=== PATIENT | male | born 1955 | race Caucasian/White ===

== ENCOUNTER 2017-10-17 22:02 | Inpatient (IN) | payer OTHER ==
[~2017-10-17] VITALS: Ht 170.2 cm; Wt 75.9 kg
[~2017-10-17 22:02] MED LIST: ADVAIR 250-501 EACH INH; ADVAIR DISKUS 21 DSK INH; ALBUTEROL0.09 MG/A1 INH; ALUPENT 20MG TA20 MG PO; AMOXICILLIN250 MG PO; AUGMENTIN 875-1 EACH PO; AZITHROMYCIN250 MG PO; CALCIUM 600600 M1 PO; CALCIUM600 M3 PO; COZAAR25 M1 PO; DALIRESP500 MC1 PO; DALIRESP500 MCG PO; DELTASONE20 MG PO; DULOXETINE HCL30 MG PO; GLUCOPHAGE850 M2 PO; INVOKANA100 MG PO; JANUVIA 100MG100 MG PO; JANUVIA100 M1 PO; JARDIANCE10 M1 PO; LEVAQUIN500 MG PO; LEVOFLOXACIN750 MG PO; LOSARTAN POTASS25 MG PO; LOVASTATIN20 M1 PO; METFORMIN1000 MG PO; MEVACOR20 MG PO; PREDNISONE10 MG PO; PREDNISONE50 MG PO; PROVENTIL HFA6.7 GM INH; SPIRIVA 18 MCG18 MCG INH; SPIRIVA18 MCG INH; TAMIFLU 75MG75 MG PO; VITAMIN D1000 IU PO; VITAMIN D2000 UNIT PO; XANAX0.25 M1 PO; ZITHROMAX TRI-500 MG PO; ZITHROMAX250 M2 PO
--- NOTE | 2017-10-17 22:08 | ED DYSPNEA/ASTHMA COMPLAINT ---
History of Present Illness General Chief Complaint: Dyspnea (COPD, CHF, Other) Stated Complaint: BIBA DIFF BREATHING Source: patient, old records, EMS Exam Limitations: no limitations Vital Signs & Intake/Output Vital Signs & Intake/Output Vital Signs Date Time Temp Pulse Resp B/P B/P Pulse O2 O2 Flow FiO2 Mean Ox Delivery Rate 10/179 BIPAP 10/17 2257 97.9 92 20 136/72 96 CPAP 10/17 2207 127 27 143/65 84 CPAP Allergies Coded Allergies: No Known Allergies (06/17/15) Reconcile Medications Albuterol Sulfate (Proventil Hfa) 90 MCG HFA.AER.AD 2 PUF INH AD PRN EMPHYSEMA /COPD (Reported) Alprazolam (Xanax) 0.25 MG TABLET 1-2 TAB PO BIDP PRN anxiety Amoxicillin/Potassium Clav (Augmentin 875-125 Tablet) 875 MG-125 MG TABLET 1 TAB PO BID copd Azithromycin (Zithromax) 250 MG TABLET 1 TAB PO DAILY PROPHYLAXIS (Reported) Calcium (Elemental-Fr Calcarb) (Calcium) 600 MG CALCIUM (1,500 MG) TABLET 2 TAB PO DAILY SUPPLEMENT (Reported) Cholecalciferol (Vitamin D3) (Vitamin D) 2,000 UNIT CAPSULE 1 CAP PO DAILY SUPPLEMENT (Reported) Duloxetine HCl 30 MG CAPSULE.DR 1 CAP PO DAILY DEPRESSION (Reported) Empagliflozin (Jardiance) 10 MG TABLET 1 TAB PO DAILY DM (Reported) Fluticasone/Salmeterol (Advair 250-50 Diskus) 250 MCG-50 MCG/DOSE BLST.W.DEV 1 PUF INH BID EMPHYSEMA/COPD (Reported) Losartan Potassium (Cozaar) 25 MG TABLET 1 TAB PO DAILY BP (Reported) Lovastatin 20 MG TABLET 1 TAB PO DAILY CHOLESTEROL (Reported) Metformin HCl (Glucophage) 850 MG TABLET 1 TAB PO BID DM (Reported) Prednisone (Deltasone) 20 MG TABLET 1 TAB PO BID copd Roflumilast (Daliresp) 500 MCG TABLET 1 TAB PO DAILY COPD/EMPHYSEMA (Reported ) Sitagliptin Phosphate (Januvia) 100 MG TABLET 1 TAB PO DAILY DM (Reported) Tiotropium [place] (Spiriva) 18 MCG CAP.W.DEV 1 CAP INH DAILY COPD/EMPHYSEMA (Reported) Triage Note: PT TO ED BY AMBULANCE WITH C/O ONSET OF RESPIRATORY DISTRESS 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 HX COPD. PLACED ON CPAP IN FIELD. ARRIVES 84%, LABORED BREATHING. RECEIVED 125 MG SOLUMEDROL, 2 G MAGNESIUM SULFATE FROM EMS IV. Triage Nurses Notes Reviewed? yes Onset: Abrupt Duration: hour(s): Timing: recent history Severity: severe Activities at Onset: none Prior Episodes/Possible Cause: occasional episodes Modifying Factors: Improves With: rest. Associated Symptoms: cough, wheezing HPI: 62 yo gentleman h/o copd presents with 1 hour acute onset of shortness of breath and wheezing. Per the medics, his family checked his 02 sat which was in the 70's. They called 911. Medics arrived gave solumedrol 125mg, a duo neb, started bipap, and gave magnesium 2gm iv. Per the medics, "He is looking a lot better." Past History Travel History Traveled to [place] past 21 day No Medical History Any Pertinent Medical History? 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 No Review of Systems Review of Systems Constitutional: Denies: see HPI. EENTM: Reports: no symptoms. Respiratory: Reports: no symptoms. Cardiovascular: Reports: no symptoms. GI: Reports: no symptoms. Genitourinary: Reports: no symptoms. Musculoskeletal: Reports: no symptoms. Skin: Reports: no symptoms. Neurological/Psychological: Reports: no symptoms. Hematologic/Endocrine: Reports: no symptoms. Immunologic/Allergic: Reports: no symptoms. All Other Systems: Reviewed and Negative Physical Exam Physical Exam General Appearance: well developed/nourished, severe distress Head: normal appearance Eyes: Bilateral: normal appearance. Ears, Nose, Throat: normal pharynx, normal ENT inspection Neck: normal inspection, supple Respiratory: accessory muscle use, wheezing, respiratory distress, prolonged expiratory phase Cardiovascular: regular rate/rhythm Gastrointestinal: normal bowel sounds, soft, non-tender, no organomegaly Extremities: normal inspection Skin: intact, normal color, warm/dry Core Measures ACS in differential dx? No CVA/TIA Diagnosis No Sepsis Present: No Sepsis Focused Exam Completed? No Progress Differential Diagnosis: asthma, CHF, COPD, pneumonia Plan of Care: Orders Procedure Date/time Status Admit to inpatient 10/18 2319 Active Add-on Test (ER Only) 10/17 2317 Active URINE DRUG SCREEN FOR ER ONLY 10/17 2317 Active URINALYSIS 10/17 2317 Active BLOOD CULTURE 10/17 2304 Active BLOOD CULTURE 10/17 2300 Active ARTERIAL BLOOD GAS (GEN) 10/17 2208 Complete TROPONIN LEVEL 10/17 2208 Complete LIPASE 10/17 2208 Complete LACTIC ACID 10/17 2208 Complete HEPATIC FUNCTION PANEL 10/17 2208 Complete CBC WITHOUT DIFFERENTIAL 10/17 2208 Complete BASIC METABOLIC PANEL 10/17 2208 Complete AMYLASE 10/17 2208 Complete EKG 10/17 2208 Active BIPAP 10/17 UNK Complete Current Medications Sig/Deidra Start time Last Medication Dose Stop Time Status Admin Azithromycin 500 MG ONCE ONE 10/17 2314 UNVr (Zithromax) 10/18 0014 Sodium Chloride 250 ML (Normal Saline 0.9%) Ceftriaxone Sodium 1,000 MG ONCE ONE 10/17 2314 UNVr (Rocephin) 10/18 2315 Laboratory Tests 10/17/175: pH 7.23 *L, pCO2 88 *H, pO2 370 H, HCO3 36 H, ABG O2 Sat (Measured) 96.0, Carboxyhemoglobin 2.8, O2 Concentration % 100, Respiration Rate 20, O2 Delivery Method BIPAP, Vent Mode ST, Expiratory Pressure 6, Inspiratory Pressure 18, Phlebotomy Draw Site RIGHT RADIAL 10/17/172221: Anion Gap 11, Estimated GFR > 60, BUN/Creatinine Ratio 25.0, Glucose 166 H, Lactic Acid 1.1, Calcium 9.1, Total Bilirubin 0.4, Direct Bilirubin 0.3, AST 21, ALT 29, Alkaline Phosphatase 98, Troponin I < 0.01, Total Protein 7.4, Albumin 4.1, Amylase 73, Lipase 524 H, CBC w Diff NO MAN DIFF REQ, RBC 4.79, MCV 96.5 H, MCH 31.4 H, MCHC 32.6 L, RDW 13.0, MPV 7.6, Gran % 88.1 H, Lymphocytes % 6.6 L, Monocytes % 5.3, Eosinophils % 0, Basophils % 0, Absolute Granulocytes 8.0 H, Absolute Lymphocytes 0.6 L, Absolute Monocytes 0.5, Absolute Eosinophils 0, Absolute Basophils 0 Microbiology 10/17 2304 BLOOD: Blood Culture - ORD 10/17 2300 BLOOD: Blood Culture - ORD Diagnostic Imaging: Viewed by Me: Radiology Read. Discussed w/RAD: Radiology Read. CXR Impression: PATIENT: TRENT IBARRA PRESENT AGE: 62 PATIENT ACCOUNT NO: [id number] : 55 LOCATION: [facility] ORDERING PHYSICIAN: Moisés Sosa MD SERVICE DATE: 10/17/17 EXAM TYPE: RAD - XRY- PORTABLE CHEST XRAY EXAMINATION: XR PORTABLE CHEST CLINICAL INFORMATION: Chest pain COMPARISON: 10/14/2017 TECHNIQUE: Portable frontal view of the chest was obtained. FINDINGS: Lungs remain clear, mildly hyperinflated, heart mediastinum and dann unchanged, no failure. No pleural effusion or pneumothorax. IMPRESSION: No acute change. No evidence of acute infiltrates. DICTATED BY: Chico Peña MD DATE/TIME DICTATED:10/17/172245 FORMING ACID DUMPER:TEDDY DATE/TIME TRANSCRIBED:10/17/172245 CONFIDENTIAL, DO NOT COPY WITHOUT APPROPRIATE AUTHORIZATION. <Electronically signed in Other Vendor System> SIGNED BY: Chico Peña MD 10/17/17 2251 Initial ED EKG: sinus tach Departure Departure Disposition: STILL A PATIENT Condition: Stable Clinical Impression Primary Impression: Respiratory distress Secondary Impressions: COPD exacerbation, Hypercapnic respiratory failure Referrals: Amos Mosley MD (PCP/Family) Departure Forms: Customer Survey General Discharge Information Comments 10/17/17, 23:10... pt feeling better with improved aeration of his lungs, bright eyed. on bipap machine, pt generating volumes >400. Admission Note Spoke With: Amos Mosley MD Documentation of Exam: Documentation of any treatments & extenuating circumstances including Concerns Regarding Discharge (functional status, medication knowledge or non-compliance, living conditions, etc.) that warrant an admission rather than observation: Pt with hypercapnia/copd exacerbation, now improving on bipap, merits icu level care. Critical Care Note Critical Care Note Critical Care Time: 30-74 min
[2017-10-17 22:30] LABS: ABSOLUTE BASOPHIL COUNT 0 /CUMM (0.0-0.2); ABSOLUTE EOSINOPHIL COUNT 0 /CUMM (0.0-0.7); ABSOLUTE LYMPH COUNT 0.6 /CUMM (1.2-3.4); ABSOLUTE MONOCYTE COUNT 0.5 /CUMM (0.10-0.60); BASOPHIL % 0 % (0.0-2.0); EOSINOPHIL % 0 % (0-5); MEAN CORPUSCULAR HGB 31.4 PG (27.0-31.0); MEAN CORPUSCULAR HGB CONC 32.6 G/DL (33.0-37.0); MEAN CORPUSCULAR VOLUME 96.5 FL (80.0-94.0); MEAN PLATELET VOLUME 7.6 FL (7.4-10.4); PLATELET COUNT 285 /CUMM (130-400); RED BLOOD CELL CT 4.79 /CUMM (4.70-6.10); WHITE BLOOD CELL COUNT 9.1 /CUMM (4.8-10.8)
[2017-10-17 22:41] LABS: GRANULOCYTE % 88.1 % (42.2-75.2); HEMATOCRIT 46.2 % (42-52)
--- NOTE | 2017-10-17 22:51 | RADIOLOGY REPORT ---
EXAMINATION: XR PORTABLE CHEST CLINICAL INFORMATION: Chest pain COMPARISON: 10/14/2017 TECHNIQUE: Portable frontal view of the chest was obtained. FINDINGS: Lungs remain clear, mildly hyperinflated, heart mediastinum and dann unchanged, no failure. No pleural effusion or pneumothorax. IMPRESSION: No acute change. No evidence of acute infiltrates.
--- NOTE | 2017-10-18 00:06 | History & Physical ---
Tato Rand MD 10/18/17 0006: General Information and HPI History of Present Illness: 62-year-old man with past medical history of COPD on 2.0 L home O2, hyperlipidemia, udb-qpbjlxn-qxxmjykze diabetes mellitus, previous tobacco user, depression, and cocaine abuse brought in by ambulance for confusion and shortness of breath. Collateral information was obtained from patient's daughter Nury who lives next door and checks in on her father regularly; her father lives with his whom is currently away. Patient's daughter reports that over the past several weeks patient's breathing has not been great. He has been audibly wheezing and "humming". On 10/14/17 patient underwent a colonoscopy for evaluation of bright red blood per rectum for which he was discharged to home and return to the ED afterwards for shortness of breath where a CTA chest was performed that ruled out pulmonary embolism. Patient was discharged home with Augmentin, prednisone, and Xanax. Patient was reportedly compliant with these medications. He apparently still smokes at times. Yesterday he went to the [facility] where he was surrounded by smoke. Patient's daughter found him this evening sitting on the couch giving himself a breathing treatment and was apparently in moderate respiratory distress for which he contacted EMS. Patient was reportedly saturating in the 70s at home for which he was given 125 mg intravenous Solu-Medrol, 2 g magnesium sulfate, a DuoNeb treatment, and placed on BiPAP and taken to the [facility] for evaluation. Presently subjective complaints and review of systems are unobtainable due to his altered mental status. Social history Patient reportedly smoked 3-4 packs per day for most of his life and in the last 20-30 years smoked approximately 1 pack per day intermittently. He currently does not drink and as far as the daughter is aware does not use any recreational drugs; however has a reported history from other healthcare providers of cocaine abuse. He is independent in all ADLs/IADLs but does receive some help from his . Objective Vital signs-temp 97.9, HR 92-127, RR 20-27, BP 136-143/65-72, O2 84-96% on BiPAP Physical exam -General: Ill-appearing middle-aged man in moderate respiratory distress -HEENT: NCAT, Leia, EOMI, anicteric sclera, moist mucous membranes, BiPAP mask in place -Neck: Supple, no JVD, trachea midline, moderate accessory respiratory muscle use -Cardio: Normal S1/S2 without murmurs/gallops/rubs; tachycardic -Pulmonary: Diffuse expiratory wheezing with poor bibasilar airflow -Abdomen: Soft, nontender, nondistended, bowel sounds intact -Neuro: Awake but somnolent, oriented 0 -Extremities: Normal pulses, no edema Labs/imaging/studies -CBC: WBC 9.1, hemoglobin 15.0, hematocrit 46.2, platelet 285 -BMP: Sodium 143, potassium 4.5, chloride 94, CO2 39, BUN 15, creatinine 0.6, anion gap 11, glucose 166 -LFT: Within normal limits -Miscellaneous: Troponin I <0.01, lipase 524, EtOH <10 -ABG: PH 7.23, PCO2 88, PO2 370, HCO3 36 -EKG: sinus tachycardia -CXR: No acute change, no evidence of acute infiltrate Assessment 62-year-old man with multiple medical problems significant for end-stage oxygen dependent chronic respiratory failure / emphysema, cocaine abuse, and medication noncompliance seen for evaluation of shortness of breath and hypoxia. Presently patient is somnolent and unable to offer subjective complaints or review of systems. Vital signs are significant for SPO2 ~84% prior to being placed on BiPAP at 100% FiO2. Physical exam demonstrates a middle-aged ill- appearing man in moderate respiratory distress with diffuse inspiratory wheezing and diminished bibasilar airflow. Labs including CBC, serum chemistry, LFT, troponin I, EtOH, and lipase are otherwise normal or negative. ABG demonstrates acidosis with hypoxia and hypercarbia. EKG demonstrates sinus tachycardia. Problem List -Acute on chronic hypoxic / hypercarbic respiratory failure -COPD Exacerbation -Possible community acquired pneumonia -Chronic respiratory failure/emphysema, on home oxygen -Foa-ryrhgzn-uxixotddh diabetes mellitus -Hyperlipidemia -History of cocaine abuse -extensive tobacco history, previously smoking 3-4 pack per day Plan -Admit to ICU -Telemetry monitoring -Total respiratory care -BiPAP: 18 / 6, FiO2 100%, RR 20 -Elevate head of bed -Accuchecks Q6H while NPO with Novolin SSI -D5 1/2 NS @ 75 mL/hr while n.p.o. -Solumedrol 40 mg IV Q6H -Azithromycin 500 mg IV Daily -Ceftriaxone 1 g IV daily -Albuterol / Ipratropium nebs Q6H -Continue home meds: Vitamin D, duloxetine, losartan, statin, Daliresp -Hold oral hypoglycemics -Hold Advair / Spiriva while receiving nebs -Follow up cultures & sensitivities -Check sputum culture -Check strep / legionell urinary antigen -Check urinalysis / urine toxicology -Pain control with acetaminophen -NPO while on bipap -DVT PPx with subcutaneous heparin -FULL CODE -Contact daughter Katharine with updates Allergies/Medications Allergies: Coded Allergies: No Known Allergies (06/17/15) Home Med list Albuterol Sulfate (Proventil Hfa) 90 MCG HFA.AER.AD 2 PUF INH AD PRN EMPHYSEMA /COPD (Reported) Azithromycin (Zithromax) 250 MG TABLET 1 TAB PO DAILY PROPHYLAXIS (Reported) Calcium (Elemental-Fr Calcarb) (Calcium) 600 MG CALCIUM (1,500 MG) TABLET 2 TAB PO DAILY SUPPLEMENT (Reported) Cholecalciferol (Vitamin D3) (Vitamin D) 2,000 UNIT CAPSULE 1 CAP PO DAILY SUPPLEMENT (Reported) Duloxetine HCl 30 MG CAPSULE.DR 1 CAP PO DAILY DEPRESSION (Reported) Empagliflozin (Jardiance) 10 MG TABLET 1 TAB PO DAILY DM (Reported) Fluticasone/Salmeterol (Advair 250-50 Diskus) 250 MCG-50 MCG/DOSE BLST.W.DEV 1 PUF INH BID EMPHYSEMA/COPD (Reported) Losartan Potassium (Cozaar) 25 MG TABLET 1 TAB PO DAILY BP (Reported) Lovastatin 20 MG TABLET 1 TAB PO DAILY CHOLESTEROL (Reported) Metformin HCl (Glucophage) 850 MG TABLET 1 TAB PO BID DM (Reported) Roflumilast (Daliresp) 500 MCG TABLET 1 TAB PO DAILY COPD/EMPHYSEMA (Reported ) Sitagliptin Phosphate (Januvia) 100 MG TABLET 1 TAB PO DAILY DM (Reported) Tiotropium [place] (Spiriva) 18 MCG CAP.W.DEV 1 CAP INH DAILY COPD/EMPHYSEMA (Reported) Past History Travel History Traveled to [place] past 21 day No Medical History Neurological: NONE EENT: NONE Cardiovascular: hyperlipidemia Respiratory: COPD, emphysema, O2 DEP AT 2 L Gastrointestinal: NONE Hepatic: NONE Renal: NONE Musculoskeletal: NONE Psychiatric: NONE Endocrine: diabetes Blood Disorders: NONE Cancer(s): NONE 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 Ambulation: independent IADLs Independent: shopping, housework, finances, food prep, telephone, transportation , medication admin. Review of Systems Review of Systems Constitutional: Reports: see HPI. Exam & Diagnostic Data Last 24 Hrs of Vital Signs/I&O Vital Signs Date Time Temp Pulse Resp B/P B/P Pulse O2 O2 Flow FiO2 Mean Ox Delivery Rate 10/18 0200 97 BIPAP 40% 10/18 0154 104 97 10/18 0150 97 Venti Mask 55% 10/18 0047 98.1 103 23 143/66 96 BIPAP 10/18 0018 109 96 10/17 2259 BIPAP 10/17 2258 97.9 92 20 136/72 96 CPAP 10/17 2207 127 27 143/65 84 CPAP Intake & Output 10/18 0800 10/18 0000 10/17 1600 Intake Total Output Total Balance Patient 75.75 kg Weight Weight Bed scale Measurement Method Last 24 Hrs of Labs/Kingsley: Laboratory Tests 10/18/17 0255: pH 7.26 *L, pCO2 74 *H, pO2 70 L, HCO3 33 H, ABG O2 Sat (Measured) 92.0 L, P- 50 (Temp Corrected) Y, Carboxyhemoglobin 1.6, O2 Concentration % 40%, Temperature 97.4, Respiration Rate 24, O2 Delivery Method VISION-FFM, Vent Mode ST, Expiratory Pressure 4, Inspiratory Pressure 18, Phlebotomy Draw Site LEFT RADIAL 10/17/17 2245: pH 7.23 *L, pCO2 88 *H, pO2 370 H, HCO3 36 H, ABG O2 Sat (Measured) 96.0, Carboxyhemoglobin 2.8, O2 Concentration % 100, Respiration Rate 20, O2 Delivery Method BIPAP, Vent Mode ST, Expiratory Pressure 6, Inspiratory Pressure 18, Phlebotomy Draw Site RIGHT RADIAL 10/17/172: Anion Gap 11, Estimated GFR > 60, BUN/Creatinine Ratio 25.0, Glucose 166 H, Lactic Acid 1.1, Calcium 9.1, Total Bilirubin 0.4, Direct Bilirubin 0.3, AST 21, ALT 29, Alkaline Phosphatase 98, Troponin I < 0.01, Total Protein 7.4, Albumin 4.1, Amylase 73, Lipase 524 H, CBC w Diff NO MAN DIFF REQ, RBC 4.79, MCV 96.5 H, MCH 31.4 H, MCHC 32.6 L, RDW 13.0, MPV 7.6, Gran % 88.1 H, Lymphocytes % 6.6 L, Monocytes % 5.3, Eosinophils % 0, Basophils % 0, Absolute Granulocytes 8.0 H, Absolute Lymphocytes 0.6 L, Absolute Monocytes 0.5, Absolute Eosinophils 0, Absolute Basophils 0, Serum Alcohol < 10.0 Microbiology 10/18 138 URINE ROUT: Legionella Antigen - COLB 10/18 138 URINE ROUT: Streptococcus pneumoniae Antigen (M - COLB 10/18 126 UPPER RESP: Surveillance Culture - COLB 10/18 126 GI: Surveillance Culture - COLB 10/19 31 LOWER RESP: Respiratory Culture - COLB 10/19 31 LOWER RESP: Gram Stain - COLB 10/17 2358 BLOOD: Blood Culture - RECD 10/17 2341 BLOOD: Blood Culture - RECD Assessment/Plan As Ranked By This Provider Problem List: 1. Hypercapnic respiratory failure 2. COPD exacerbation Core Measures/Misc (12/13) Acute Coronary Syndrome ACS Diagnosis: No Congestive Heart Failure Congestive Heart Failure Diagnosis No Cerebrovascular Accident CVA/TIA Diagnosis: No VTE (View Protocol) VTE Risk Factors Age>40 No Mechanical VTE Prophylaxis d/t N/A MechProphylax Ordered No VTE Pharm Prophylaxis d/t NA PharmProphylax ordered Sepsis (View protocol) Sepsis Present: No If YES complete Sepsis Event Note If YES complete Sepsis Event Note Dimitri COOPER,[facility] 10/18/17 1012: Core Measures/Misc (12/13) Sepsis (View protocol) If YES complete Sepsis Event Note If YES complete Sepsis Event Note Attending MD Review Statement Attending Statement Attending MD Statement: examined this patient, discuss w/resident/PA/OPERATIONS LABEL CLERK, agreed w/resident/PA/OPERATIONS LABEL CLERK, discussed with family, reviewed EMR data (avail), discussed with nursing, discussed with case mgmt, reviewed images, amended to note Attending Assessment/Plan: Seen and examined SIGNIFICANT DATA Blood work reviewed baseline bicarbonate is elevated anion gap is normal lactic acid was normal lipase was elevated with normal amylase alcohol level was unremarkable white count initially was 9.4 on with 88% segs This is a gentleman with very end-stage COPD, ongoing smoking, recent cocaine use, oxygen dependent COPD with FEV1 of 0.4 L, medication noncompliance, diabetes, hypertension, hyperlipidemia, recent colonoscopy with polypectomy with external and internal hemorrhoids with diverticulosis, previous history of respiratory insufficiency, came into the hospital with significant issues * Acute hypoxemic and hypercarbic respiratory failure due to very severe COPD with exacerbation with medical noncompliance with recent drug use and ongoing smoking. Patient's FEV1 of 0.5 L and unfortunately has very end-stage COPD * Recent left lower lobe infiltrate suggestive of pneumonia with bronchiectasis * Recent CT scan suggestive of slightly enlarged mediastinal and hilar lymph nodes appears reactive with extensive left lower lobe opacification with tree-in -bud opacification with mild bilateral lower lobe bronchiectasis and bronchial wall thickening. Patient does have an 8 mm nodule which needs follow-up CT and is high risk for malignancy * Recent drug use needs to evaluate for any withdrawal * Zyu-ujqndoj-pwpdiltgk diabetes / Hyperlipidemia * Extensive tobacco use up until recently RECOMMENDATIONS/PLAN ICU admission BiPAP Continue kbpfc-nkp-xokac nebulizer therapy every 6 hours with DuoNeb IV corticosteroids Continue ceftriaxone and azithromycin Sputum culture Discontinue Roflumilast and will resume upon discharge Continue other medications If patient is quite anxious okay with low-dose morphine to reduce dyspnea and can use 0.5 mg lorazepam to 8 hours when necessary for severe anxiety as he was doing cocaine up until recently Patient is critically ill prognosis is very poor total time spent 40 minutes
[2017-10-18 02:00] VITALS: BP 140/70
[2017-10-18 06:03] LABS: ABSOLUTE BASOPHIL COUNT 0 /CUMM (0.0-0.2); ABSOLUTE EOSINOPHIL COUNT 0 /CUMM (0.0-0.7); ABSOLUTE GRANULOCYTE CT 4.7 /CUMM (1.4-6.5); ABSOLUTE LYMPH COUNT 0.3 /CUMM (1.2-3.4); ABSOLUTE MONOCYTE COUNT 0.2 /CUMM (0.10-0.60); BASOPHIL % 0 % (0.0-2.0); EOSINOPHIL % 0 % (0-5); HEMATOCRIT 42.6 % (42-52); MEAN CORPUSCULAR HGB 31.5 PG (27.0-31.0); MEAN CORPUSCULAR HGB CONC 32.7 G/DL (33.0-37.0); MEAN CORPUSCULAR VOLUME 96.2 FL (80.0-94.0); MEAN PLATELET VOLUME 7.8 FL (7.4-10.4); PLATELET COUNT 238 /CUMM (130-400); RBC DISTRIBUTION WIDTH 13.4 % (11.5-14.5); RED BLOOD CELL CT 4.43 /CUMM (4.70-6.10); WHITE BLOOD CELL COUNT 5.1 /CUMM (4.8-10.8)
--- NOTE | 2017-10-18 07:19 | PN- Resident CRCU ---
Subjective HPI/CRCU Issues: #Ovoyw-gc-Trtjtps Hypercarbic respiratory failure in the setting of end-stage COPD #Acute COPD exacerbation #Non-insulin dependant DM #Hyperlipidemia #H/o cocaine abuse 24 Hour Events: Pt seen and examined at bedside. Visibly dyspneic and distressed. He reports feeling anxious about his respiratory status. He remains afebrile. No other complains. Objective Vital Signs & I&O Last 8 Hrs of Vitals and I&O: Intake & Output 10/18 1600 10/18 0800 10/18 0000 Intake Total 1175 Output Total 750 Balance 425 Intake, IV 575 Intake, Oral 600 Output, Urine 750 Patient 167 lb Weight Weight Bed scale Measurement Method Laboratory Tests 10/18 10/18 0755 0500 Blood Gas pH (7.35 - 7.45 PH) 7.30 *L pCO2 (35 - 45 TORR) 72 *H pO2 (80 - 100 TORR) 105 H HCO3 (21 - 28 MEQ/L) 35 H ABG O2 Sat (Measured) (>96.0 %) 96.0 Carboxyhemoglobin (1.5 - 5.0 %) 1.3 L O2 Concentration % 40% Respiration Rate (BPM) 26 O2 Delivery Method VISION Vent Mode ST Expiratory Pressure (CM H2O P) 4 Inspiratory Pressure (CM H2O P) 18 Chemistry Sodium (137 - 145 mmol/L) 143 Potassium (3.5 - 5.1 mmol/L) 4.5 Chloride (98 - 107 mmol/L) 95 L Carbon Dioxide (22 - 30 mmol/L) 37 H Anion Gap (5 - 16) 11 BUN (9 - 20 mg/dL) 20 Creatinine (0.7 - 1.2 mg/dL) 0.6 L Estimated GFR (>60 ml/min) > 60 Glucose (65 - 99 mg/dL) 181 H Calcium (8.4 - 10.2 mg/dL) 8.7 Phosphorus (2.5 - 4.5 mg/dL) 3.2 Magnesium (1.6 - 2.3 mg/dL) 2.6 H Total Bilirubin (0.2 - 1.3 mg/dL) 0.3 AST (17 - 59 U/L) 16 L ALT (21 - 72 U/L) 26 Albumin (3.5 - 5.0 g/dL) 3.6 Hematology CBC w Diff NO MAN DIFF REQ WBC (4.8 - 10.8 /CUMM) 5.1 RBC (4.70 - 6.10 /CUMM) 4.43 L Hgb (14.0 - 18.0 G/DL) 13.9 L Hct (42 - 52 %) 42.6 MCV (80.0 - 94.0 FL) 96.2 H MCH (27.0 - 31.0 PG) 31.5 H MCHC (33.0 - 37.0 G/DL) 32.7 L RDW (11.5 - 14.5 %) 13.4 Plt Count (130 - 400 /CUMM) 238 MPV (7.4 - 10.4 FL) 7.8 Gran % (42.2 - 75.2 %) 91.0 H Lymphocytes % (20.5 - 51.1 %) 5.9 L Monocytes % (1.7 - 9.3 %) 3.1 Eosinophils % (0 - 5 %) 0 Basophils % (0.0 - 2.0 %) 0 Absolute Granulocytes (1.4 - 6.5 /CUMM) 4.7 Absolute Lymphocytes (1.2 - 3.4 /CUMM) 0.3 L Absolute Monocytes (0.10 - 0.60 /CUMM) 0.2 Absolute Eosinophils (0.0 - 0.7 /CUMM) 0 Absolute Basophils (0.0 - 0.2 /CUMM) 0 Miscellaneous Phlebotomy Draw Site LEFT RADIAL Toxicology Urine Opiates Screen (>2000 NG/ML) < 100 Methadone Screen (>300 NG/ML) 70 Barbiturate Screen (>200 NG/ML) < 60 Ur Phencyclidine Scrn (>25 NG/ML) < 6.00 Amphetamines Screen (>1000 NG/ML) < 100 U Benzodiazepines Scrn (>200 NG/ML) 513 H Urine Cocaine Screen (>300 NG/ML) < 50 Urine Cannabis Screen (>50 NG/ML) < 5.00 Urines Urine Color (YEL,AMB,STR) YEL Urine Clarity (CLEAR) CLEAR Urine pH (5.0 - 8.0) 6.0 Ur Specific [place] (1.001 - 1.035) >= 1.030 Urine Protein (NEG,<30 MG/DL) TRACE H Urine Ketones (NEG) 15 H Urine Nitrite (NEG) NEG Urine Bilirubin (NEG) NEG Urine Urobilinogen (0.1 - 1.0 EU/dl) 0.2 Ur Leukocyte Esterase (NEG) NEG Ur Microscopic SEDIMENT EXAMINED Urine RBC (0 - 5 /HPF) 1-3 Urine WBC (0 - 2 /HPF) RARE Ur Epithelial Cells (NONE,FEW) RARE Urine Mucus (FEW,NONE) FEW Urine Hemoglobin (NEG) NEG Urine Glucose (N MG/DL) >=1000 H 10/18 10/17 0255 2245 Blood Gas pH (7.35 - 7.45 PH) 7.26 *L 7.23 *L pCO2 (35 - 45 TORR) 74 *H 88 *H pO2 (80 - 100 TORR) 70 L 370 H HCO3 (21 - 28 MEQ/L) 33 H 36 H ABG O2 Sat (Measured) (>96.0 %) 92.0 L 96.0 P-50 (Temp Corrected) Y Carboxyhemoglobin (1.5 - 5.0 %) 1.6 2.8 O2 Concentration % 40% 100 Temperature (97.0 - 100.0 FARH) 97.4 Respiration Rate (BPM) 24 20 O2 Delivery Method VISION-FFM BIPAP Vent Mode ST ST Expiratory Pressure (CM H2O P) 4 6 Inspiratory Pressure (CM H2O P) 18 18 Miscellaneous Phlebotomy Draw Site LEFT RADIAL RIGHT RADIAL 10/172 Chemistry Sodium (137 - 145 mmol/L) 143 Potassium (3.5 - 5.1 mmol/L) 4.5 Chloride (98 - 107 mmol/L) 94 L Carbon Dioxide (22 - 30 mmol/L) 39 H Anion Gap (5 - 16) 11 BUN (9 - 20 mg/dL) 15 Creatinine (0.7 - 1.2 mg/dL) 0.6 L Estimated GFR (>60 ml/min) > 60 BUN/Creatinine Ratio (7 - 25 %) 25.0 Glucose (65 - 99 mg/dL) 166 H Lactic Acid (0.7 - 2.1 mmol/L) 1.1 Calcium (8.4 - 10.2 mg/dL) 9.1 Total Bilirubin (0.2 - 1.3 mg/dL) 0.4 Direct Bilirubin (< 0.4 mg/dL) 0.3 AST (17 - 59 U/L) 21 ALT (21 - 72 U/L) 29 Alkaline Phosphatase (< 127 U/L) 98 Troponin I (<0.11 ng/ml) < 0.01 Total Protein (6.3 - 8.2 g/dL) 7.4 Albumin (3.5 - 5.0 g/dL) 4.1 Amylase (30 - 110 U/L) 73 Lipase (23 - 300 U/L) 524 H Hematology CBC w Diff NO MAN DIFF REQ WBC (4.8 - 10.8 /CUMM) 9.1 RBC (4.70 - 6.10 /CUMM) 4.79 Hgb (14.0 - 18.0 G/DL) 15.0 Hct (42 - 52 %) 46.2 MCV (80.0 - 94.0 FL) 96.5 H MCH (27.0 - 31.0 PG) 31.4 H MCHC (33.0 - 37.0 G/DL) 32.6 L RDW (11.5 - 14.5 %) 13.0 Plt Count (130 - 400 /CUMM) 285 MPV (7.4 - 10.4 FL) 7.6 Gran % (42.2 - 75.2 %) 88.1 H Lymphocytes % (20.5 - 51.1 %) 6.6 L Monocytes % (1.7 - 9.3 %) 5.3 Eosinophils % (0 - 5 %) 0 Basophils % (0.0 - 2.0 %) 0 Absolute Granulocytes (1.4 - 6.5 /CUMM) 8.0 H Absolute Lymphocytes (1.2 - 3.4 /CUMM) 0.6 L Absolute Monocytes (0.10 - 0.60 /CUMM) 0.5 Absolute Eosinophils (0.0 - 0.7 /CUMM) 0 Absolute Basophils (0.0 - 0.2 /CUMM) 0 Toxicology Serum Alcohol (<10 MG/DL) < 10.0 Microbiology Date/Time Procedure - Status Source Growth 10/18 0500 Legionella Antigen - COMP URINE ROUT 10/18 0500 Streptococcus pneumoniae Antigen (M - COMP URINE ROUT 10/18 0200 Surveillance Culture - RECD UPPER RESP 10/18 0200 Surveillance Culture - RECD GI 10/18 0032 Respiratory Culture - COLB LOWER RESP 10/18 0032 Gram Stain - COLB LOWER RESP 10/17 2358 Blood Culture - RECD BLOOD 10/17 2341 Blood Culture - RECD BLOOD Exam General Appearance: alert, awake, anxious, severe distress Head: atraumatic, normal appearance Neck: normal inspection, supple Respiratory: accessory muscle use, respiratory distress, Wheezing throughout both pulmonary niño Cardiovascular: tachycardia, norml femoral pulses equa Gastrointestinal: normal bowel sounds, soft, non-tender, no organomegaly Extremities: ecchymoses surrounding R hallux Cranial Nerves: normal hearing, normal speech Skin: intact, normal color Current Medications: Current Medications Sig/Deidra Start time Last Medication Dose Route Stop Time Status Admin Acetaminophen 1,000 MG Q6P PRN 10/18 0030 AC IV Albuterol Sulfate 3 ML Q4H 10/18 0030 AC 10/18 INH 0807 Albuterol Sulfate 3 ML ONCE ONE 10/17 2215 DC 10/17 INH 10/17 221 225 Albuterol Sulfate 3 ML ONCE ONE 10/17 2215 DC 10/17 INH 10/17 2216 2252 Albuterol Sulfate 3 ML ONCE ONE 10/17 2215 DC 10/17 INH 10/17 2216 2252 Albuterol Sulfate 3 ML ONCE ONE 10/17 2215 DC 10/17 INH 10/17 2216 2253 Albuterol Sulfate 3 ML ONCE ONE 10/17 2215 DC 10/17 INH 10/17 2216 2253 Albuterol Sulfate 3 ML ONCE ONE 10/17 2215 DC 10/17 INH 10/17 2216 2253 Atorvastatin Calcium 5 MG 1700 10/18 1700 AC PO Azithromycin 500 MG DAILY 10/18 899 AC 10/18 Sodium Chloride 250 ML IV 0909 Azithromycin 500 MG ONCE ONE 10/17 2315 DC 10/18 Sodium Chloride 250 ML IV 10/18 0014 0040 Ceftriaxone Sodium 1,000 MG DAILY 10/18 09 AC 10/18 IV 0908 Ceftriaxone Sodium 0 .STK-MED ONE 10/17 2352 DC .ROUTE Ceftriaxone Sodium 1,000 MG ONCE ONE 10/17 2315 DC 10/18 IV 10/17 2316 0039 Cholecalciferol 1,000 IU DAILY 10/18 09 AC 10/18 PO 0946 Dextrose/Sodium 1,000 ML SEE RATE 10/18 0030 AC Chloride IV Duloxetine HCl 30 MG DAILY 10/18 09 AC 10/18 PO 0946 Enoxaparin Sodium 40 MG DAILY 10/18 09 AC 10/18 SC 0946 Ipratropium [place] 2.5 ML Q4 10/18 0200 AC 10/18 INH 0808 Ipratropium [place] 2.5 ML ONCE ONE 10/17 2215 DC 10/17 INH 10/17 2216 2252 Lorazepam 0.5 MG ONCE ONE 10/18 0845 DC 10/18 IV 10/18 0846 0845 Losartan Potassium 25 MG DAILY 10/18 09 AC 10/18 PO 0947 Methylprednisolone 40 MG Q6 10/18 0030 AC 10/18 IV 0528 Roflumilast 500 MCG DAILY 10/18 09 AC 10/18 PO 0947 CXR Findings: 10/17 EXAM TYPE: RAD - XRY-PORTABLE CHEST XRAY EXAMINATION: XR PORTABLE CHEST CLINICAL INFORMATION: Chest pain COMPARISON: 10/14/2017 TECHNIQUE: Portable frontal view of the chest was obtained. FINDINGS: Lungs remain clear, mildly hyperinflated, heart mediastinum and dann unchanged, no failure. No pleural effusion or pneumothorax. IMPRESSION: No acute change. No evidence of acute infiltrates. Impression/Plan Impression/Problem List Impression: Mr. Dinero is a 62 y/o M with PMH of COPD on 2L O2@home, significant tobacco use history, Non-IDDM, depression and h/o cocaine abuse that was brought to the ED due to AMS and SOB. Patient states during the am of admission, pt had a colonoscopy due to BRBPR s/p polypectomyand subsequently started to progressively feel more SOB. On the ED pt was found to have AMS, he was placed on BiPAP at 100% FiO2. His initial admission labs showed evidence of acidosis, hypercarbia and hypoxia. He was admitted to the ICU for management of acute-on- chronic hypercarbic respiratory failure and COPD exacerbation. IMPRESSION #Xdpuu-[id number] hypercarbic respiratory failure in the setting of end-stage COPD #Acute COPD exacerbation #Non-insulin dependant DM #Hyperlipidemia #H/o cocaine abuse #Nzyfw-qp-disfosr hypercarbic respiratory failure in the setting of end-stage COPD/COPD Exacerbation Patient's latest PFT'S on record demostrates a severely reduced FEV1; he has a chronic history of tobacco use up until last month -- with two to three packs per day for over 30 years. His initial ABG showed pH 7.23, PCO2 88, PO2 370, HCO3 36 on BiPAP with 100% FiO2. This picture is consistent with acute-on- chronic hypercarbic respiratory failure. He is restless, visibly dyspneic with accessory muscle use and a productive cough with no blood streaks. Repeat ABG after BiPAP showed a slowly decreasing pCO2. Urinary ag for Legionella/Strep Pneumo are negative, while the rest show no growth so far. CXR is unremarkable for any acute pathology. CTA on 10/14 showed a 7mm nodule given his history is concerning for malignancy. He is currently on high flow NC as pt continously refuses BiPAP. -BiPAP -Duonebs q4 -Low dose morphine PRN for dyspnea, ativan 0.5mg q8P -f/u ABG #Acute COPD exacerbation Pt's initial presentation is concerning for COPD exacerbation. has been afebrile with a normal WBC. CT does show mild bilateral lower lobe bronchiectasis with some areas of patchy opacification. He is currently on azithromycin and ceftriaxone -Solumedrol 40mg IV q8 -Azithro/ceftriaxone day #1 #Non-insulin dependant DM Pt's blood sugar has been 150-180. He is on a regular diet. #Hyperlipidemia Pt's home medicine has been continued. -Continue atorvastatin FULL CODE Reg Diet DVT PPX: PHARM, MECH Problem List: 1. Decompensated chronic obstructive pulmonary disease with exacerbation 2. Hypercapnic respiratory failure 3. Respiratory distress Pain Ratin Tomorrow's Labs & Rationales: abg cbc bep Plan DVT/Prophylaxis: mechanical, pharmacological
[2017-10-18 08:00] VITALS: BP 130/78
[2017-10-18 16:00] VITALS: BP 160/80
[2017-10-19] VITALS: BP 132/76
[2017-10-19 04:51] LABS: ABSOLUTE BASOPHIL COUNT 0 /CUMM (0.0-0.2); ABSOLUTE EOSINOPHIL COUNT 0 /CUMM (0.0-0.7); ABSOLUTE GRANULOCYTE CT 5.5 /CUMM (1.4-6.5); ABSOLUTE LYMPH COUNT 0.6 /CUMM (1.2-3.4); ABSOLUTE MONOCYTE COUNT 0.6 /CUMM (0.10-0.60); BASOPHIL % 0.1 % (0.0-2.0); EOSINOPHIL % 0 % (0-5); GRANULOCYTE % 82.3 % (42.2-75.2); HEMATOCRIT 44.9 % (42-52); MEAN CORPUSCULAR HGB 31.4 PG (27.0-31.0); MEAN CORPUSCULAR HGB CONC 32.7 G/DL (33.0-37.0); MEAN CORPUSCULAR VOLUME 96.2 FL (80.0-94.0); MEAN PLATELET VOLUME 7.9 FL (7.4-10.4); PLATELET COUNT 255 /CUMM (130-400); RBC DISTRIBUTION WIDTH 12.8 % (11.5-14.5); RED BLOOD CELL CT 4.67 /CUMM (4.70-6.10); WHITE BLOOD CELL COUNT 6.7 /CUMM (4.8-10.8)
[2017-10-19 08:00] VITALS: BP 134/70
--- NOTE | 2017-10-19 08:12 | PN- Resident CRCU ---
Wilson Jordon Virgen 10/19/17 0812: Subjective HPI/CRCU Issues: #Czpso-mq-bbyknzv hypercarbic respiratory failure in the setting of end-stage COPD #Acute COPD exacerbation #Non-insulin dependant DM #Hyperlipidemia #H/o cocaine abuse 24 Hour Events: Pt seen and examined at bedside this am. Had lengthy conversation about his fears; especifically as it pertains to BiPAP. He feels anxious, worried "he might not get out of this one". This feeling impeded his sleep over night, and led him to refuse using BiPAP. He looks less in respiratory distress as compared to yesterday. Also noted spotty nose bleed during the night. He remains on HFNC 40L/m, 0.35 FiO2. No other acute complains overnight. Extensive conversation had about code status. Family was at his bedside as requested. A discussion was had at length about the fears and worries on his current condition, [facility] goals of care and the implications of continously refusing BiPAP therapy. He understood the implications of said decision, agreeing to BiPAP, but clearly stating he does not "want to prolong his suffering" should it come to the point of intubation. The patient understood what this meant and while he seemed distressed and anxious about having the conversation, he communicated his intentions with clarity. Objective Vital Signs & I&O Last 8 Hrs of Vitals and I&O: Vital Signs Date Time Temp Pulse Resp B/P B/P Pulse O2 O2 Flow FiO2 Mean Ox Delivery Rate 10/19 0842 101 150/79 10/19 0821 94 Nasal 35% Cannula 10/19 0800 97.9 94 22 134/70 93 Nasal 35% Cannula 10/19 0800 93 Nasal 35% Cannula 10/19 0400 96 Nasal 35% Cannula 10/19 0056 96 Nasal 35% Cannula 10/19 0000 98.6 98 28 132/76 94 Nasal 35% Cannula 10/19 0000 94 Nasal 35% Cannula 10/18 2226 103 96 10/18 2000 95 Nasal 35% Cannula 10/18 1625 93 Nasal 35% Cannula 10/18 1600 93 Nasal 35% Cannula 10/18 1600 97.8 94 26 160/80 92 Nasal 35% Cannula 10/18 1430 95 Nasal 35% Cannula 10/18 1200 95 Nasal 35% Cannula 10/18 1135 95 Nasal 35% Cannula Laboratory Tests 07/24/18 0535: pH 7.30 *L, pCO2 72 *H, pO2 104 H, HCO3 35 H, ABG O2 Sat (Measured) 96.0, Carboxyhemoglobin 1.0 L, O2 Concentration % 35%, O2 Delivery Method HFNC, Phlebotomy Draw Site RIGHT RADIAL 10/19/17 0350: Anion Gap 11, Estimated GFR > 60, Glucose 142 H, Calcium 8.6, Phosphorus 2.6, Magnesium 2.3, Total Bilirubin 0.7, AST 26, ALT 23, Albumin 3.7, CBC w Diff NO MAN DIFF REQ, RBC 4.67 L, MCV 96.2 H, MCH 31.4 H, MCHC 32.7 L, RDW 12.8, MPV 7.9, Gran % 82.3 H, Lymphocytes % 8.8 L, Monocytes % 8.8, Eosinophils % 0, Basophils % 0.1, Absolute Granulocytes 5.5, Absolute Lymphocytes 0.6 L, Absolute Monocytes 0.6, Absolute Eosinophils 0, Absolute Basophils 0 Exam General Appearance: alert, awake, anxious, moderate distress, pt tearful, though talkative Head: atraumatic, normal appearance Ears, Nose, Throat: spotty nasal bleeding noted Neck: normal inspection, supple Respiratory: B/L wheezing, decreased breath sounds R>L. scattered rhonchi throughout Cardiovascular: regular rate/rhythm Gastrointestinal: normal bowel sounds, soft, non-tender, no organomegaly Extremities: normal inspection, normal capillary refill Current Medications: Current Medications Sig/Deidra Start time Last Medication Dose Route Stop Time Status Admin Acetaminophen 1,000 MG Q6P PRN 10/18 0030 AC IV Albuterol Sulfate 3 ML Q4H 10/18 0030 AC 10/19 INH 0808 Alprazolam 0.25 MG ONCE ONE 10/18 1230 DC 10/18 PO 10/18 1231 1224 Atorvastatin Calcium 5 MG 1700 10/18 1700 AC 10/18 PO 1708 Azithromycin 500 MG DAILY 10/18 09 AC 10/19 Sodium Chloride 250 ML IV 0843 Ceftriaxone Sodium 1,000 MG DAILY 10/18 0900 AC 10/19 IV 0843 Cholecalciferol 1,000 IU DAILY 10/18 09 AC 10/19 PO 0842 Dextrose/Sodium 1,000 ML SEE RATE 10/18 0030 DC Chloride IV Duloxetine HCl 30 MG DAILY 10/18 0900 AC 10/19 PO 0842 Enoxaparin Sodium 40 MG DAILY 10/18 09 AC 10/19 SC 0843 Ipratropium [place] 2.5 ML Q4 10/18 0200 AC 10/19 INH 0809 Lorazepam 0.5 MG ONCE ONE 10/19 0930 DC IV 10/19 0931 Lorazepam 0.5 MG ONE ONE 10/18 1230 CAN PO 10/18 1231 Losartan Potassium 25 MG DAILY 10/18 09 AC 10/19 PO 0842 Methylprednisolone 40 MG Q6 10/18 0030 AC 10/19 IV 0626 Morphine Sulfate 2 MG ONCE ONE 10/19 0930 DC 10/19 IV 10/19 0931 0930 Ondansetron HCl 4 MG ONCE ONE 10/18 1115 DC 10/18 IV 10/18 1116 1113 Ramelteon 8 MG ONCE ONE 10/19 0345 DC 10/19 PO 10/19 0346 0347 Roflumilast 500 MCG DAILY 10/18 09 DC 10/18 PO 0947 Impression/Plan Impression/Problem List Impression: Mr. Dinero is a 62 y/o M with PMH of COPD on 2L O2@home, significant tobacco use history, Non-IDDM, depression and h/o cocaine abuse that was brought to the ED due to AMS and SOB. Patient states during the am of admission, pt had a colonoscopy due to BRBPR s/p polypectomyand subsequently started to progressively feel more SOB. On the ED pt was found to have AMS, he was placed on BiPAP at 100% FiO2. His initial admission labs showed evidence of acidosis, hypercarbia and hypoxia. He was admitted to the ICU for management of acute-on- chronic hypercarbic respiratory failure and COPD exacerbation. IMPRESSION #Pxtrx-yf-hogqqro hypercarbic respiratory failure in the setting of end-stage COPD #Acute COPD exacerbation #Non-insulin dependant DM #Hyperlipidemia #H/o cocaine abuse #Rtboq-ef-chwzfob hypercarbic respiratory failure in the setting of end-stage COPD/COPD Exacerbation Patient's latest PFT'S on record demostrates a severely reduced FEV1; he has a chronic history of tobacco use up until last month -- with two to three packs per day for over 30 years. His initial ABG showed pH 7.23, PCO2 88, PO2 370, HCO3 36 on BiPAP with 100% FiO2. This picture is consistent with acute-on- chronic hypercarbic respiratory failure. He is restless, visibly dyspneic with accessory muscle use and a productive cough with no blood streaks. Repeat ABG after BiPAP showed a slowly decreasing pCO2. He adamantly refuses BiPAP -Refused again overnight, stating he feels smothered by it. PCO2 remains @ 72 on repeat ABGs. Urinary ag for Legionella/Strep Pneumo are negative, while the rest show no growth so far. CXR is unremarkable for any acute pathology. CTA on 10/14 showed a 7mm nodule given his history is concerning for malignancy. He is currently on high flow NC, 40L/Min, FiO2 0.35. BiPAP will be attempted again today as patient calms down. -BiPAP -Duonebs q4 -Low dose morphine PRN for dyspnea, ativan 0.5mg q8P -f/u ABG -Lexapro 10 mg started #Acute COPD exacerbation Pt's initial presentation is concerning for COPD exacerbation. Has been afebrile with a normal WBC. CT does show mild bilateral lower lobe bronchiectasis with some areas of patchy opacification. He is currently on azithromycin and ceftriaxone -Solumedrol 40mg IV q8 -Azithro/ceftriaxone day #2 #Non-insulin dependant DM Pt's blood sugar has been 150-180. He is on a regular diet. #Hyperlipidemia Pt's home medicine has been continued. -Continue atorvastatin DNI Reg Diet DVT PPX: PHARM, MECH Problem List: 1. Decompensated chronic obstructive pulmonary disease with exacerbation 2. COPD (chronic obstructive pulmonary disease) 3. Hypercapnic respiratory failure Pain Ratin Tomorrow's Labs & Rationales: cbc abg icu lab bundle Plan DVT/Prophylaxis: mechanical, pharmacological Dimitri COOPER,[facility] 10/19/17 0916: Objective Vital Signs & I&O Last 8 Hrs of Vitals and I&O: Intake & Output 10/19 1600 Intake Total Output Total Balance Patient 167 lb Weight Attending MD Review Statement Attending Sign Off Attending Cosign Statement: I have: examined this patient, reviewed al EMR data, personally reviewd images, discussd w/resident/PA/FARMHAND, discussed mgmt plan w/mathieu, discussed mgmt plan w/CM, discussed mgmt plan w/pt, agreed w/resident/PA/FARMHAND, amended to note. Other Findings: Seen and examined, pt wishes no bipap as he felt smothered (will try later) Still anxious Exam as noted above This is a gentleman with very end-stage COPD, ongoing smoking, recent cocaine use, oxygen dependent COPD with FEV1 of 0.4 L, medication noncompliance, diabetes, hypertension, hyperlipidemia, recent colonoscopy with polypectomy with external and internal hemorrhoids with diverticulosis, previous history of respiratory insufficiency, came into the hospital with significant issues * Acute hypoxemic and hypercarbic respiratory failure due to very severe COPD with exacerbation with medical noncompliance with recent drug use and ongoing smoking. Patient's FEV1 of 0.5 L and unfortunately has very end-stage COPD * Recent left lower lobe infiltrate suggestive of pneumonia with bronchiectasis * Recent CT scan suggestive of slightly enlarged mediastinal and hilar lymph nodes appears reactive with extensive left lower lobe opacification with tree-in -bud opacification with mild bilateral lower lobe bronchiectasis and bronchial wall thickening. Patient does have an 8 mm nodule which needs follow-up CT and is high risk for malignancy * Recent drug use needs to evaluate for any withdrawal * Lvz-wajirsd-wxkdgvgck diabetes / Hyperlipidemia * Extensive tobacco use up until recently RECOMMENDATIONS/PLAN Cont high flow Try bipap at hs and later if he has increase work of breathing Continue [id number] nebulizer therapy every 6 hours with DuoNeb IV corticosteroids reduce dose to 40 q 8 today and q 12 in am Continue ceftriaxone and azithromycin Sputum culture Discontinue Roflumilast and will resume upon discharge Continue other medications Low dose morphine and lorazepam for dyspnea and anxiety Lexopro 10 mg today Patient is critically ill prognosis is very poor total time spent 40 minutes
[2017-10-19 16:00] VITALS: BP 148/80
[2017-10-20] VITALS: BP 170/90
[2017-10-20 05:26] LABS: ABSOLUTE BASOPHIL COUNT 0 /CUMM (0.0-0.2); ABSOLUTE EOSINOPHIL COUNT 0 /CUMM (0.0-0.7); ABSOLUTE GRANULOCYTE CT 6.1 /CUMM (1.4-6.5); ABSOLUTE LYMPH COUNT 0.7 /CUMM (1.2-3.4); ABSOLUTE MONOCYTE COUNT 0.5 /CUMM (0.10-0.60); BASOPHIL % 0.2 % (0.0-2.0); EOSINOPHIL % 0.1 % (0-5); HEMATOCRIT 45.9 % (42-52); MEAN CORPUSCULAR HGB 30.8 PG (27.0-31.0); MEAN CORPUSCULAR HGB CONC 32.3 G/DL (33.0-37.0); MEAN CORPUSCULAR VOLUME 95.3 FL (80.0-94.0); MEAN PLATELET VOLUME 7.7 FL (7.4-10.4); PLATELET COUNT 270 /CUMM (130-400); RBC DISTRIBUTION WIDTH 12.7 % (11.5-14.5); RED BLOOD CELL CT 4.82 /CUMM (4.70-6.10); WHITE BLOOD CELL COUNT 7.3 /CUMM (4.8-10.8)
[2017-10-20 06:05] LABS: GRANULOCYTE % 83.6 % (42.2-75.2)
[2017-10-20 08:00] VITALS: BP 142/80
--- NOTE | 2017-10-20 08:15 | PN- Resident CRCU ---
Subjective HPI/CRCU Issues: #Xxtbg-hy-ywmfpho hypercarbic respiratory failure in the setting of end-stage COPD #Acute COPD exacerbation #Non-insulin dependant DM #Hyperlipidemia #H/o cocaine abuse 24 Hour Events: Pt seen and examined this am. at bedside. He looked anxious while on the BiPAP but no other acute complains. He used BiPAP on and off during the night. Latest pCO2 is 66, down from 72. He remains restless. Objective Vital Signs & I&O Last 8 Hrs of Vitals and I&O: 10/20 10/20 0625 0430 Blood Gas pH (7.35 - 7.45 PH) 7.32 L pCO2 (35 - 45 TORR) 66 *H pO2 (80 - 100 TORR) 81 HCO3 (21 - 28 MEQ/L) 33 H ABG O2 Sat (Measured) (>96.0 %) 94.0 L P-50 (Temp Corrected) Y Carboxyhemoglobin (1.5 - 5.0 %) 1.1 L O2 Concentration % 30% Temperature (97.0 - 100.0 FARH) 98.4 Respiration Rate (BPM) 26 O2 Delivery Method VISION Vent Mode ST Expiratory Pressure (CM H2O P) 4 Inspiratory Pressure (CM H2O P) 18 Chemistry Sodium (137 - 145 mmol/L) 139 Potassium (3.5 - 5.1 mmol/L) 4.9 Chloride (98 - 107 mmol/L) 91 L Carbon Dioxide (22 - 30 mmol/L) 36 H Anion Gap (5 - 16) 12 BUN (9 - 20 mg/dL) 34 H Creatinine (0.7 - 1.2 mg/dL) 0.5 L Estimated GFR (>60 ml/min) > 60 Glucose (65 - 99 mg/dL) 149 H Calcium (8.4 - 10.2 mg/dL) 8.6 Phosphorus (2.5 - 4.5 mg/dL) 2.5 Magnesium (1.6 - 2.3 mg/dL) 2.3 Total Bilirubin (0.2 - 1.3 mg/dL) 0.5 AST (17 - 59 U/L) 14 L ALT (21 - 72 U/L) 26 Albumin (3.5 - 5.0 g/dL) 3.6 Hematology CBC w Diff NO MAN DIFF REQ WBC (4.8 - 10.8 /CUMM) 7.3 RBC (4.70 - 6.10 /CUMM) 4.82 Hgb (14.0 - 18.0 G/DL) 14.9 Hct (42 - 52 %) 45.9 MCV (80.0 - 94.0 FL) 95.3 H MCH (27.0 - 31.0 PG) 30.8 MCHC (33.0 - 37.0 G/DL) 32.3 L RDW (11.5 - 14.5 %) 12.7 Plt Count (130 - 400 /CUMM) 270 MPV (7.4 - 10.4 FL) 7.7 Gran % (42.2 - 75.2 %) 83.6 H Lymphocytes % (20.5 - 51.1 %) 9.4 L Monocytes % (1.7 - 9.3 %) 6.7 Eosinophils % (0 - 5 %) 0.1 Basophils % (0.0 - 2.0 %) 0.2 Absolute Granulocytes (1.4 - 6.5 /CUMM) 6.1 Absolute Lymphocytes (1.2 - 3.4 /CUMM) 0.7 L Absolute Monocytes (0.10 - 0.60 /CUMM) 0.5 Absolute Eosinophils (0.0 - 0.7 /CUMM) 0 Absolute Basophils (0.0 - 0.2 /CUMM) 0 Miscellaneous Phlebotomy Draw Site RIGHT RADIAL 10/19 2049 Blood Gas pH (7.35 - 7.45 PH) 7.34 L pCO2 (35 - 45 TORR) 70 *H pO2 (80 - 100 TORR) 90 HCO3 (21 - 28 MEQ/L) 37 H ABG O2 Sat (Measured) (>96.0 %) 95.0 L P-50 (Temp Corrected) Y Carboxyhemoglobin (1.5 - 5.0 %) 1.3 L O2 Concentration % 30% Temperature (97.0 - 100.0 FARH) 98.3 O2 Delivery Method [facility] Miscellaneous Phlebotomy Draw Site RIGHT RADIAL 10/20/17 0625: pH 7.32 L, pCO2 66 *H, pO2 81, HCO3 33 H, ABG O2 Sat (Measured) 94.0 L, P-50 (Temp Corrected) Y, Carboxyhemoglobin 1.1 L, O2 Concentration % 30%, Temperature 98.4, Respiration Rate 26, O2 Delivery Method VISION, Vent Mode ST, Expiratory Pressure 4, Inspiratory Pressure 18, Phlebotomy Draw Site RIGHT RADIAL 10/20/17 0430: Anion Gap 12, Estimated GFR > 60, Glucose 149 H, Calcium 8.6, Phosphorus 2.5, Magnesium 2.3, Total Bilirubin 0.5, AST 14 L, ALT 26, Albumin 3.6, CBC w Diff NO MAN DIFF REQ, RBC 4.82, MCV 95.3 H, MCH 30.8, MCHC 32.3 L, RDW 12.7, MPV 7.7, Gran % 83.6 H, Lymphocytes % 9.4 L, Monocytes % 6.7, Eosinophils % 0.1, Basophils % 0.2, Absolute Granulocytes 6.1, Absolute Lymphocytes 0.7 L, Absolute Monocytes 0.5, Absolute Eosinophils 0, Absolute Basophils 0 10/19/172049: pH 7.34 L, pCO2 70 *H, pO2 90, HCO3 37 H, ABG O2 Sat (Measured) 95.0 L, P-50 (Temp Corrected) Y, Carboxyhemoglobin 1.3 L, O2 Concentration % 30%, Temperature 98.3, O2 Delivery Method HIIGH FLOW NC, Phlebotomy Draw Site RIGHT RADIAL Exam General Appearance: anxious, moderate distress Head: atraumatic, normal appearance Respiratory: accessory muscle use, wheezing, respiratory distress Cardiovascular: regular rate/rhythm Gastrointestinal: normal bowel sounds, soft, non-tender, no organomegaly Extremities: normal inspection, normal capillary refill Current Medications: Current Medications Sig/Deidra Start time Last Medication Dose Route Stop Time Status Admin Acetaminophen 1,000 MG Q6P PRN 10/18 0030 AC IV Albuterol Sulfate 3 ML Q4 10/19 2200 AC 10/21 INH 1630 Atorvastatin Calcium 5 MG 1700 10/18 1700 AC 10/21 PO 1607 Azithromycin 500 MG DAILY 10/18 899 AC 10/21 Sodium Chloride 250 ML IV 0842 Ceftriaxone Sodium 1,000 MG DAILY 10/18 09 AC 10/21 IV 0854 Cholecalciferol 1,000 IU DAILY 10/18 09 AC 10/21 PO 0840 Duloxetine HCl 30 MG DAILY 10/18 09 AC 10/21 PO 0839 Enoxaparin Sodium 40 MG DAILY 10/18 09 AC 10/21 SC 0839 Escitalopram Oxalate 10 MG DAILY 10/19 1031 AC 10/21 PO 0840 Guaifenesin 600 MG Q12 10/21 0900 AC 10/21 PO 0854 Ipratropium [place] 2.5 ML Q4 10/18 0200 AC 10/21 INH 1630 Lorazepam 0.5 MG Q12P PRN 10/20 1100 AC 10/20 IV 2252 Losartan Potassium 25 MG DAILY 10/18 0900 AC 10/21 PO 0840 Methylprednisolone 60 MG Q8 10/21 2200 AC IV Methylprednisolone 40 MG Q8 10/20 1400 DC 10/21 IV 1422 Morphine Sulfate 2 MG Q4P PRN 10/20 1100 AC 10/21 IV 0547 Impression/Plan Impression/Problem List Impression: Mr. Dinero is a 62 y/o M with PMH of COPD on 2L O2@home, significant tobacco use history, Non-IDDM, depression and h/o cocaine abuse that was brought to the ED due to AMS and SOB. Patient states during the am of admission, pt had a colonoscopy due to BRBPR s/p polypectomyand subsequently started to progressively feel more SOB. On the ED pt was found to have AMS, he was placed on BiPAP at 100% FiO2. His initial admission labs showed evidence of acidosis, hypercarbia and hypoxia. He was admitted to the ICU for management of acute-on- chronic hypercarbic respiratory failure and COPD exacerbation. IMPRESSION #Qarnt-sn-ihmagsi hypercarbic respiratory failure in the setting of end-stage COPD #Acute COPD exacerbation #Non-insulin dependant DM #Hyperlipidemia #H/o cocaine abuse #Uovul-nr-ljkkelg hypercarbic respiratory failure in the setting of end-stage COPD/COPD Exacerbation Patient's latest PFT'S on record demostrates a severely reduced FEV1; he has a chronic history of tobacco use up until last month -- with two to three packs per day for over 30 years. His initial ABG showed pH 7.23, PCO2 88, PO2 370, HCO3 36 on BiPAP with 100% FiO2. This picture is consistent with acute-on- chronic hypercarbic respiratory failure. He adamantly refuses BiPAP -though did have periods of on-off with it overnight. PCO2 is @ 66 on repeat ABGs. Urinary ag for Legionella/Strep Pneumo are negative, while the rest show no growth so far. CXR is unremarkable for any acute pathology. CTA on 10/14 showed a 7mm nodule given his history is concerning for malignancy. He is currently on high flow NC. -BiPAP -Duonebs q4 -Low dose morphine 1-2mg PRN for dyspnea, ativan 0.5mg q12P -f/u ABG -Lexapro 10 mg started #Acute COPD exacerbation Pt's initial presentation is concerning for COPD exacerbation. Has been afebrile with a normal WBC. CT does show mild bilateral lower lobe bronchiectasis with some areas of patchy opacification. He is currently on azithromycin and ceftriaxone -Solumedrol 40mg IV q8 -Azithro/ceftriaxone day #3 #Non-insulin dependant DM Pt's blood sugar has been 150-180. He is on a regular diet. #Hyperlipidemia Pt's home medicine has been continued. -Continue atorvastatin DNI Reg Diet DVT PPX: PHARM, MECH Problem List: 1. Decompensated chronic obstructive pulmonary disease with exacerbation 2. Hypercapnic respiratory failure Pain Ratin Tomorrow's Labs & Rationales: CBC ICU lab bundle ABG Plan DVT/Prophylaxis: mechanical, pharmacological
--- NOTE | 2017-10-20 09:38 | PN- Pulmonary ---
Subjective HPI/Critical Care Issues: Pt seen and examined this am. at bedside. He looked anxious Did not like bipap He used BiPAP on and off during the night. Latest pCO2 is 66, down from 72. He remains less restless than yesterday Objective Current Medications: Current Medications Sig/Deidra Start time Last Medication Dose Route Stop Time Status Admin Acetaminophen 1,000 MG Q6P PRN 10/18 0030 AC IV Albuterol Sulfate 3 ML Q4 10/19 2200 AC 10/20 INH 0830 Albuterol Sulfate 3 ML Q4H 10/18 0030 DC 10/19 INH 1553 Atorvastatin Calcium 5 MG 1700 10/18 1700 AC 10/19 PO 1622 Azithromycin 500 MG DAILY 10/18 09 AC 10/20 Sodium Chloride 250 ML IV 0913 Ceftriaxone Sodium 1,000 MG DAILY 10/18 09 AC 10/20 IV 0913 Cholecalciferol 1,000 IU DAILY 10/18 09 AC 10/20 PO 0912 Duloxetine HCl 30 MG DAILY 10/18 09 AC 10/20 PO 0912 Enoxaparin Sodium 40 MG DAILY 10/18 0900 AC 10/20 SC 0912 Escitalopram Oxalate 10 MG DAILY 10/19 1031 AC 10/20 PO 0912 Ipratropium [place] 2.5 ML Q4 10/18 0200 AC 10/20 INH 0830 Lorazepam 0.5 MG ONCE ONE 10/19 1615 DC 10/19 IV 10/19 1616 1622 Lorazepam 0.5 MG ONCE ONE 10/19 0930 CAN IV 10/19 0931 Losartan Potassium 25 MG DAILY 10/18 09 AC 10/20 PO 0912 Methylprednisolone 40 MG Q12 10/20 2100 DC IV Methylprednisolone 40 MG Q12 10/20 1800 AC IV Methylprednisolone 40 MG Q8 10/19 1400 DC 10/20 IV 0545 Methylprednisolone 40 MG Q6 10/18 0030 DC 10/19 IV 0626 Vital Signs & I&O Last 24 Hrs of Vitals and I&O: Vital Signs Date Time Temp Pulse Resp B/P B/P Pulse O2 O2 Flow FiO2 Mean Ox Delivery Rate 10/20 0912 106 157/95 10/20 0853 94 Nasal 30% Cannula 10/20 0810 94 Nasal 30% Cannula 10/20 0810 80 96 10/20 0800 98.3 100 20 142/80 96 Nasal 30% Cannula 10/20 0800 94 Nasal 30% Cannula 10/20 0630 101 95 10/20 0432 101 93 10/20 0400 94 Nasal 30% Cannula 10/20 0217 98 95 10/20 0101 95 Nasal 30% Cannula 10/20 0026 99 95 10/20 0000 93 BIPAP 30% 10/20 0000 97.8 104 32 170/90 93 BIPAP 30% 10/19 2115 100 94 10/19 2000 96 Nasal 30% Cannula 10/19 1600 95 Nasal 35% Cannula 10/19 1600 96.9 95 19 148/80 95 Nasal 35% Cannula 10/19 1559 94 96 10/19 1558 96 BIPAP 35% 10/19 1436 102 96 10/19 1205 96 Nasal 35% Cannula 10/19 1200 93 Nasal 35% Cannula Intake & Output 10/20 0810/20 0000 Intake Total 120 320 Output Total 650 700 Balance -530 -380 Intake, IV 20 Intake, Oral 120 300 Number 0 Bowel Movements Output, Urine 650 700 Laboratory Tests 10/20 10/20 0625 0430 Blood Gas pH (7.35 - 7.45 PH) 7.32 L pCO2 (35 - 45 TORR) 66 *H pO2 (80 - 100 TORR) 81 HCO3 (21 - 28 MEQ/L) 33 H ABG O2 Sat (Measured) (>96.0 %) 94.0 L P-50 (Temp Corrected) Y Carboxyhemoglobin (1.5 - 5.0 %) 1.1 L O2 Concentration % 30% Temperature (97.0 - 100.0 FARH) 98.4 Respiration Rate (BPM) 26 O2 Delivery Method VISION Vent Mode ST Expiratory Pressure (CM H2O P) 4 Inspiratory Pressure (CM H2O P) 18 Chemistry Sodium (137 - 145 mmol/L) 139 Potassium (3.5 - 5.1 mmol/L) 4.9 Chloride (98 - 107 mmol/L) 91 L Carbon Dioxide (22 - 30 mmol/L) 36 H Anion Gap (5 - 16) 12 BUN (9 - 20 mg/dL) 34 H Creatinine (0.7 - 1.2 mg/dL) 0.5 L Estimated GFR (>60 ml/min) > 60 Glucose (65 - 99 mg/dL) 149 H Calcium (8.4 - 10.2 mg/dL) 8.6 Phosphorus (2.5 - 4.5 mg/dL) 2.5 Magnesium (1.6 - 2.3 mg/dL) 2.3 Total Bilirubin (0.2 - 1.3 mg/dL) 0.5 AST (17 - 59 U/L) 14 L ALT (21 - 72 U/L) 26 Albumin (3.5 - 5.0 g/dL) 3.6 Hematology CBC w Diff NO MAN DIFF REQ WBC (4.8 - 10.8 /CUMM) 7.3 RBC (4.70 - 6.10 /CUMM) 4.82 Hgb (14.0 - 18.0 G/DL) 14.9 Hct (42 - 52 %) 45.9 MCV (80.0 - 94.0 FL) 95.3 H MCH (27.0 - 31.0 PG) 30.8 MCHC (33.0 - 37.0 G/DL) 32.3 L RDW (11.5 - 14.5 %) 12.7 Plt Count (130 - 400 /CUMM) 270 MPV (7.4 - 10.4 FL) 7.7 Gran % (42.2 - 75.2 %) 83.6 H Lymphocytes % (20.5 - 51.1 %) 9.4 L Monocytes % (1.7 - 9.3 %) 6.7 Eosinophils % (0 - 5 %) 0.1 Basophils % (0.0 - 2.0 %) 0.2 Absolute Granulocytes (1.4 - 6.5 /CUMM) 6.1 Absolute Lymphocytes (1.2 - 3.4 /CUMM) 0.7 L Absolute Monocytes (0.10 - 0.60 /CUMM) 0.5 Absolute Eosinophils (0.0 - 0.7 /CUMM) 0 Absolute Basophils (0.0 - 0.2 /CUMM) 0 Miscellaneous Phlebotomy Draw Site RIGHT RADIAL 10/19 8905 Blood Gas pH (7.35 - 7.45 PH) 7.34 L 7.30 *L pCO2 (35 - 45 TORR) 70 *H 72 *H pO2 (80 - 100 TORR) 90 104 H HCO3 (21 - 28 MEQ/L) 37 H 35 H ABG O2 Sat (Measured) (>96.0 %) 95.0 L 96.0 P-50 (Temp Corrected) Y Carboxyhemoglobin (1.5 - 5.0 %) 1.3 L 1.0 L O2 Concentration % 30% 35% Temperature (97.0 - 100.0 FARH) 98.3 O2 Delivery Method HIIGH FLOW NC HFNC Miscellaneous Phlebotomy Draw Site RIGHT RADIAL RIGHT RADIAL 10/19 0350 Chemistry Sodium (137 - 145 mmol/L) 138 Potassium (3.5 - 5.1 mmol/L) 5.1 Chloride (98 - 107 mmol/L) 91 L Carbon Dioxide (22 - 30 mmol/L) 36 H Anion Gap (5 - 16) 11 BUN (9 - 20 mg/dL) 32 H Creatinine (0.7 - 1.2 mg/dL) 0.4 L Estimated GFR (>60 ml/min) > 60 Glucose (65 - 99 mg/dL) 142 H Calcium (8.4 - 10.2 mg/dL) 8.6 Phosphorus (2.5 - 4.5 mg/dL) 2.6 Magnesium (1.6 - 2.3 mg/dL) 2.3 Total Bilirubin (0.2 - 1.3 mg/dL) 0.7 AST (17 - 59 U/L) 26 ALT (21 - 72 U/L) 23 Albumin (3.5 - 5.0 g/dL) 3.7 Hematology CBC w Diff NO MAN DIFF REQ WBC (4.8 - 10.8 /CUMM) 6.7 RBC (4.70 - 6.10 /CUMM) 4.67 L Hgb (14.0 - 18.0 G/DL) 14.7 Hct (42 - 52 %) 44.9 MCV (80.0 - 94.0 FL) 96.2 H MCH (27.0 - 31.0 PG) 31.4 H MCHC (33.0 - 37.0 G/DL) 32.7 L RDW (11.5 - 14.5 %) 12.8 Plt Count (130 - 400 /CUMM) 255 MPV (7.4 - 10.4 FL) 7.9 Gran % (42.2 - 75.2 %) 82.3 H Lymphocytes % (20.5 - 51.1 %) 8.8 L Monocytes % (1.7 - 9.3 %) 8.8 Eosinophils % (0 - 5 %) 0 Basophils % (0.0 - 2.0 %) 0.1 Absolute Granulocytes (1.4 - 6.5 /CUMM) 5.5 Absolute Lymphocytes (1.2 - 3.4 /CUMM) 0.6 L Absolute Monocytes (0.10 - 0.60 /CUMM) 0.6 Absolute Eosinophils (0.0 - 0.7 /CUMM) 0 Absolute Basophils (0.0 - 0.2 /CUMM) 0 Microbiology Date/Time Procedure - Status Source Growth 10/18 0500 Legionella Antigen - COMP URINE ROUT 10/18 0500 Streptococcus pneumoniae Antigen (M - COMP URINE ROUT 10/18 0200 Surveillance Culture - COMP UPPER RESP 10/18 199 Surveillance Culture - COMP GI 10/18 003 Respiratory Culture - CAN LOWER RESP Cancelled: SPECIMEN NOT RECEIVED IN LABORATORY 10/19 31 Gram Stain - CAN LOWER RESP Cancelled: SPECIMEN NOT RECEIVED IN LABORATORY 10/17 2358 Blood Culture - RES BLOOD 10/17 2341 Blood Culture - RES BLOOD Impression/Plan Impression/Plan Impression/Plan: General Appearance: alert, awake, anxious, severe distress Head: atraumatic, normal appearance Neck: normal inspection, supple Respiratory: accessory muscle use, respiratory distress, Wheezing throughout both pulmonary niño Cardiovascular: tachycardia, norml femoral pulses equa Gastrointestinal: normal bowel sounds, soft, non-tender, no organomegaly Extremities: ecchymoses surrounding R hallux Cranial Nerves: normal hearing, normal speech Skin: intact, normal color This is a gentleman with very end-stage COPD, ongoing smoking, recent cocaine use, oxygen dependent COPD with FEV1 of 0.4 L, medication noncompliance, diabetes, hypertension, hyperlipidemia, recent colonoscopy with polypectomy with external and internal hemorrhoids with diverticulosis, previous history of respiratory insufficiency, came into the hospital with significant issues * Acute hypoxemic and hypercarbic respiratory failure due to very severe COPD with exacerbation with medical noncompliance with recent drug use and ongoing smoking. Patient's FEV1 of 0.5 L and unfortunately has very end-stage COPD * Left lower lobe infiltrate / pneumonia with bronchiectasis * Recent CT scan suggestive of slightly enlarged mediastinal and hilar lymph nodes appears reactive with extensive left lower lobe opacification with tree-in -bud opacification with mild bilateral lower lobe bronchiectasis and bronchial wall thickening. Patient does have an 8 mm nodule which needs follow-up CT and is high risk for malignancy * Recent drug use needs to evaluate for any withdrawal was on cocaine * Fkb-dxafrlg-dcbokpbjw diabetes / Hyperlipidemia * Extensive tobacco use till recently RECOMMENDATIONS/PLAN Cont high flow Try bipap at hs 12/6 with back up rate of 14 Continue ffoqb-ztd-[id number] nebulizer therapy every 6 hours with DuoNeb IV corticosteroids reduce dose to 40 q 8 today and q 12 in am Continue ceftriaxone and azithromycin for now Sputum culture Low dose morphine 1-2 mg q 4 prn and lorazepam 0.5 po q12 prn for severe dyspnea and anxiety Lexopro 10 mg Discussed with yesterday and today and with the patient Pt wishes to be DNI Patient is critically ill prognosis is very poor in a long run total time spent 38 minutes
[2017-10-20 16:00] VITALS: BP 148/80
[2017-10-21] VITALS: BP 150/80
[2017-10-21 06:10] LABS: ABSOLUTE BASOPHIL COUNT 0 /CUMM (0.0-0.2); ABSOLUTE EOSINOPHIL COUNT 0 /CUMM (0.0-0.7); ABSOLUTE GRANULOCYTE CT 5.7 /CUMM (1.4-6.5); ABSOLUTE LYMPH COUNT 0.6 /CUMM (1.2-3.4); ABSOLUTE MONOCYTE COUNT 0.3 /CUMM (0.10-0.60); BASOPHIL % 0.1 % (0.0-2.0); EOSINOPHIL % 0.1 % (0-5); GRANULOCYTE % 85.3 % (42.2-75.2); HEMATOCRIT 45.5 % (42-52); MEAN CORPUSCULAR HGB 31.1 PG (27.0-31.0); MEAN CORPUSCULAR HGB CONC 32.7 G/DL (33.0-37.0); MEAN CORPUSCULAR VOLUME 95.3 FL (80.0-94.0); MEAN PLATELET VOLUME 7.7 FL (7.4-10.4); PLATELET COUNT 261 /CUMM (130-400); RBC DISTRIBUTION WIDTH 12.2 % (11.5-14.5); RED BLOOD CELL CT 4.78 /CUMM (4.70-6.10); WHITE BLOOD CELL COUNT 6.7 /CUMM (4.8-10.8)
[2017-10-21 08:00] VITALS: BP 130/70; BP 140/70
--- NOTE | 2017-10-21 09:14 | PN- Resident CRCU ---
Subjective HPI/CRCU Issues: #Igjfe-go-ufqwmyw hypercarbic respiratory failure in the setting of end-stage COPD #Acute COPD exacerbation #Non-insulin dependant DM #Hyperlipidemia #H/o cocaine abuse 24 Hour Events: Pt seen and examined this am. He looked in respiratory distress, though was alert and oriented x3. He had no other acute complains. Stated having difficulties with the BiPAP; latest pCO2 is 86 with pH of 7.27. Son and were at bedside. He is currently on HFNC. Objective Vital Signs & I&O Last 8 Hrs of Vitals and I&O: Laboratory Tests 10/21/17 0545: pH 7.27 *L, pCO2 86 *H, pO2 54 L, HCO3 40 H, ABG O2 Sat (Measured) 86.0 L, P- 50 (Temp Corrected) Y, Carboxyhemoglobin 0.9 L, O2 Concentration % 30%, Temperature 97.5, Respiration Rate 14, O2 Delivery Method VISION, Vent Mode ST, Expiratory Pressure 6, Inspiratory Pressure 12, Phlebotomy Draw Site LEFT RADIAL 10/21/17 0420: Anion Gap 10, Estimated GFR > 60, Glucose 195 H, Calcium 8.8, Phosphorus 2.5, Magnesium 2.3, Total Bilirubin 0.6, AST 15 L, ALT 28, Albumin 3.4 L, CBC w Diff MAN DIFF ORDERED, RBC 4.78, MCV 95.3 H, MCH 31.1 H, MCHC 32.7 L, RDW 12.2, MPV 7.7, Gran % 85.3 H, Lymphocytes % 9.5 L, Monocytes % 5.0, Eosinophils % 0.1, Basophils % 0.1, Absolute Granulocytes 5.7, Segmented Neutrophils 88 H, Band Neutrophils 1, Absolute Lymphocytes 0.6 L, Lymphocytes 9 L, Monocytes 2, Absolute Monocytes 0.3, Absolute Eosinophils 0, Absolute Basophils 0, Platelet Estimate ADEQUATE, Polychromasia 1+, Hypochromic- Microcytic 1+, Poikilocytosis 2+, Basophilic Stippling 1+, Ovalocytes 1+, Stomatocytes 1+, Fld Total RBCs Counted 100 Vital Signs Date Time Temp Pulse Resp B/P B/P Pulse O2 O2 Flow FiO2 Mean Ox Delivery Rate 10/21 1045 95 Nasal 30% Cannula 10/21 0930 98 Nasal 40% Cannula 10/21 0840 91 138/71 10/21 0800 97 Nasal 50% Cannula 10/21 0800 96.1 96 20 140/70 97 Nasal 50% Cannula 10/21 0612 94 Nasal 55% Cannula 10/21 0550 144 87 10/21 0400 94 BIPAP 30% 10/21 0343 88 93 10/21 0155 92 BIPAP 30% 10/21 0145 100 93 10/21 0000 95 BIPAP 30% 10/21 0000 98.3 88 23 150/80 95 BIPAP 30% 10/20 2238 98 96 10/20 2035 95 Nasal 30% Cannula 10/20 2000 93 Nasal 30% Cannula 10/20 1922 96 Nasal 30% Cannula 10/20 1650 95 Nasal 30% Cannula 10/20 1600 97 Nasal 30% Cannula 10/20 1600 98.9 102 18 148/80 98 Nasal 30% Cannula 10/20 1445 95 Nasal 30% Cannula Intake & Output 10/21 1600 10/21 0800 10/21 0000 Intake Total 80 520 Output Total 300 900 Balance -220 -380 Intake, Oral 80 520 Number 0 Bowel Movements Output, Urine 300 900 Exam General Appearance: alert, awake, anxious, moderate distress Head: atraumatic, normal appearance Neck: normal inspection, supple Respiratory: chest non-tender, wheezing (B/L throughout) Cardiovascular: regular rate/rhythm, tachycardia Gastrointestinal: normal bowel sounds, soft, non-tender, no organomegaly Extremities: normal inspection, normal capillary refill Cranial Nerves: normal hearing, normal speech Current Medications: Current Medications Sig/Deidar Start time Last Medication Dose Route Stop Time Status Admin Acetaminophen 1,000 MG Q6P PRN 10/18 0030 AC IV Albuterol Sulfate 3 ML Q4 10/19 220 AC 10/21 INH 0802 Atorvastatin Calcium 5 MG 1700 10/18 1700 AC 10/20 PO 1629 Azithromycin 500 MG DAILY 10/18 899 AC 10/21 Sodium Chloride 250 ML IV 0842 Ceftriaxone Sodium 1,000 MG DAILY 10/18 09 AC 10/21 IV 0854 Cholecalciferol 1,000 IU DAILY 10/18 09 AC 10/21 PO 0840 Duloxetine HCl 30 MG DAILY 10/18 09 AC 10/21 PO 0839 Enoxaparin Sodium 40 MG DAILY 10/18 09 AC 10/21 SC 0839 Escitalopram Oxalate 10 MG DAILY 10/19 1031 AC 10/21 PO 0840 Guaifenesin 600 MG Q12 10/21 0900 AC 10/21 PO 0854 Ipratropium [place] 2.5 ML Q4 10/18 0200 AC 10/21 INH 0802 Lorazepam 0.5 MG Q12P PRN 10/20 1100 AC 10/20 IV 2252 Losartan Potassium 25 MG DAILY 10/18 0900 AC 10/21 PO 0840 Methylprednisolone 40 MG Q8 10/20 1400 AC 10/21 IV 0521 Morphine Sulfate 2 MG Q4P PRN 10/20 1100 AC 10/21 IV 0547 Impression/Plan Impression/Problem List Impression: Mr. Dinero is a 62 y/o M with PMH of COPD on 2L O2@home, significant tobacco use history, Non-IDDM, depression and h/o cocaine abuse that was brought to the ED due to AMS and SOB. Patient states during the am of admission, pt had a colonoscopy due to BRBPR s/p polypectomyand subsequently started to progressively feel more SOB. On the ED pt was found to have AMS, he was placed on BiPAP at 100% FiO2. His initial admission labs showed evidence of acidosis, hypercarbia and hypoxia. He was admitted to the ICU for management of acute-on- chronic hypercarbic respiratory failure and COPD exacerbation. IMPRESSION #Olhpn-tk-ezaupip hypercarbic respiratory failure in the setting of end-stage COPD #Acute COPD exacerbation #Non-insulin dependant DM #Hyperlipidemia #H/o cocaine abuse #Gkmnf-fv-wqiadkk hypercarbic respiratory failure in the setting of end-stage COPD/COPD Exacerbation Patient's latest PFT'S on record demostrates a severely reduced FEV1; he has a chronic history of tobacco use up until last month -- with two to three packs per day for over 30 years. His initial ABG showed pH 7.23, PCO2 88, PO2 370, HCO3 36 on BiPAP with 100% FiO2. This picture is consistent with acute-on- chronic hypercarbic respiratory failure. Latest PCO2 is @ 86 on repeat ABGs. Urinary ag for Legionella/Strep Pneumo are negative, while the rest show no growth so far. CXR is unremarkable for any acute pathology. CTA on 10/14 showed a 7mm nodule given his history is concerning for malignancy. He is currently on high flow NC. -BiPAP -Duonebs q4 -Low dose morphine 1-2mg PRN for dyspnea, ativan 0.5mg q12P -f/u ABG -Lexapro 10 mg started #Acute COPD exacerbation Pt's initial presentation is concerning for COPD exacerbation. Has been afebrile with a normal WBC. CT does show mild bilateral lower lobe bronchiectasis with some areas of patchy opacification. He is currently on azithromycin and ceftriaxone -Solumedrol 60mg IV q8 -Azithro/ceftriaxone day #4 #Hyperlipidemia Pt's home medicine has been continued. -Continue atorvastatin DNI Reg Diet DVT PPX: PHARM, MECH Problem List: 1. Decompensated chronic obstructive pulmonary disease with exacerbation 2. Hypercapnic respiratory failure Pain Ratin Tomorrow's Labs & Rationales: cbc ICU lab bundle Plan DVT/Prophylaxis: mechanical, pharmacological Plan DVT/Prophylaxis: mechanical, pharmacological
--- NOTE | 2017-10-21 14:19 | PN- CRCU ---
Subjective HPI/Critical Care Issues: Still the same fatigue On and bipap last night Objective Current Medications: Current Medications Sig/Deidra Start time Last Medication Dose Route Stop Time Status Admin Acetaminophen 1,000 MG Q6P PRN 10/18 0030 AC IV Albuterol Sulfate 3 ML Q4 10/19 2200 AC 10/21 INH 1300 Atorvastatin Calcium 5 MG 1700 10/18 1700 AC 10/20 PO 1629 Azithromycin 500 MG DAILY 10/18 09 AC 10/21 Sodium Chloride 250 ML IV 0842 Ceftriaxone Sodium 1,000 MG DAILY 10/18 09 AC 10/21 IV 0854 Cholecalciferol 1,000 IU DAILY 10/18 0900 AC 10/21 PO 0840 Duloxetine HCl 30 MG DAILY 10/18 09 AC 10/21 PO 0839 Enoxaparin Sodium 40 MG DAILY 10/18 09 AC 10/21 SC 0839 Escitalopram Oxalate 10 MG DAILY 10/19 1031 AC 10/21 PO 0840 Guaifenesin 600 MG Q12 10/21 0900 AC 10/21 PO 0854 Ipratropium [place] 2.5 ML Q4 10/18 0200 AC 10/21 INH 1300 Lorazepam 0.5 MG Q12P PRN 10/20 1100 AC 10/20 IV 2252 Losartan Potassium 25 MG DAILY 10/18 09 AC 10/21 PO 0840 Methylprednisolone 40 MG Q8 10/20 1400 AC 10/21 IV 0521 Morphine Sulfate 2 MG Q4P PRN 10/20 1100 AC 10/21 IV 0547 Vital Signs & I&O Last 24 Hrs of Vitals and I&O: Vital Signs Date Time Temp Pulse Resp B/P B/P Pulse O2 O2 Flow FiO2 Mean Ox Delivery Rate 10/21 1045 95 Nasal 30% Cannula 10/21 0930 98 Nasal 40% Cannula 10/21 0840 91 138/71 10/21 0800 97 Nasal 50% Cannula 10/21 0800 96.1 96 20 140/70 97 Nasal 50% Cannula 10/21 0612 94 Nasal 55% Cannula 10/21 0550 144 87 10/21 0400 94 BIPAP 30% 10/21 0343 88 93 10/21 0155 92 BIPAP 30% 10/21 0145 100 93 10/21 0000 95 BIPAP 30% 10/21 0000 98.3 88 23 150/80 95 BIPAP 30% 10/20 2238 98 96 07/25 2035 95 Nasal 30% Cannula 10/20 Nasal 30% Cannula 10/20 1921 96 Nasal 30% Cannula 10/20 1650 95 Nasal 30% Cannula 10/20 1600 97 Nasal 30% Cannula 10/20 1600 98.9 102 18 148/80 98 Nasal 30% Cannula 10/20 1445 95 Nasal 30% Cannula Intake & Output 10/21 0800 10/21 0000 Intake Total 80 520 Output Total 300 900 Balance -220 -380 Intake, Oral 80 520 Number 0 Bowel Movements Output, Urine 300 900 Laboratory Tests 10/21 10/21 0545 0420 Blood Gas pH (7.35 - 7.45 PH) 7.27 *L pCO2 (35 - 45 TORR) 86 *H pO2 (80 - 100 TORR) 54 L HCO3 (21 - 28 MEQ/L) 40 H ABG O2 Sat (Measured) (>96.0 %) 86.0 L P-50 (Temp Corrected) Y Carboxyhemoglobin (1.5 - 5.0 %) 0.9 L O2 Concentration % 30% Temperature (97.0 - 100.0 FARH) 97.5 Respiration Rate (BPM) 14 O2 Delivery Method VISION Vent Mode ST Expiratory Pressure (CM H2O P) 6 Inspiratory Pressure (CM H2O P) 12 Chemistry Sodium (137 - 145 mmol/L) 140 Potassium (3.5 - 5.1 mmol/L) 5.1 Chloride (98 - 107 mmol/L) 91 L Carbon Dioxide (22 - 30 mmol/L) 39 H Anion Gap (5 - 16) 10 BUN (9 - 20 mg/dL) 31 H Creatinine (0.7 - 1.2 mg/dL) 0.5 L Estimated GFR (>60 ml/min) > 60 Glucose (65 - 99 mg/dL) 195 H Calcium (8.4 - 10.2 mg/dL) 8.8 Phosphorus (2.5 - 4.5 mg/dL) 2.5 Magnesium (1.6 - 2.3 mg/dL) 2.3 Total Bilirubin (0.2 - 1.3 mg/dL) 0.6 AST (17 - 59 U/L) 15 L ALT (21 - 72 U/L) 28 Albumin (3.5 - 5.0 g/dL) 3.4 L Hematology CBC w Diff MAN DIFF ORDERED WBC (4.8 - 10.8 /CUMM) 6.7 RBC (4.70 - 6.10 /CUMM) 4.78 Hgb (14.0 - 18.0 G/DL) 14.9 Hct (42 - 52 %) 45.5 MCV (80.0 - 94.0 FL) 95.3 H MCH (27.0 - 31.0 PG) 31.1 H MCHC (33.0 - 37.0 G/DL) 32.7 L RDW (11.5 - 14.5 %) 12.2 Plt Count (130 - 400 /CUMM) 261 MPV (7.4 - 10.4 FL) 7.7 Gran % (42.2 - 75.2 %) 85.3 H Lymphocytes % (20.5 - 51.1 %) 9.5 L Monocytes % (1.7 - 9.3 %) 5.0 Eosinophils % (0 - 5 %) 0.1 Basophils % (0.0 - 2.0 %) 0.1 Absolute Granulocytes (1.4 - 6.5 /CUMM) 5.7 Segmented Neutrophils (42.2 - 75.2 %) 88 H Band Neutrophils (0.0 - 5.0 %) 1 Absolute Lymphocytes (1.2 - 3.4 /CUMM) 0.6 L Lymphocytes (20.5 - 51.1 %) 9 L Monocytes (1.7 - 9.3 %) 2 Absolute Monocytes (0.10 - 0.60 /CUMM) 0.3 Absolute Eosinophils (0.0 - 0.7 /CUMM) 0 Absolute Basophils (0.0 - 0.2 /CUMM) 0 Platelet Estimate (ADEQUATE) ADEQUATE Polychromasia 1+ Hypochromic-Microcytic 1+ Poikilocytosis 2+ Basophilic Stippling 1+ Ovalocytes 1+ Stomatocytes 1+ Miscellaneous Phlebotomy Draw Site LEFT RADIAL Other Body Source Fld Total RBCs Counted (%) 100 10/20 10/20 0625 0430 Blood Gas pH (7.35 - 7.45 PH) 7.32 L pCO2 (35 - 45 TORR) 66 *H pO2 (80 - 100 TORR) 81 HCO3 (21 - 28 MEQ/L) 33 H ABG O2 Sat (Measured) (>96.0 %) 94.0 L P-50 (Temp Corrected) Y Carboxyhemoglobin (1.5 - 5.0 %) 1.1 L O2 Concentration % 30% Temperature (97.0 - 100.0 FARH) 98.4 Respiration Rate (BPM) 26 O2 Delivery Method VISION Vent Mode ST Expiratory Pressure (CM H2O P) 4 Inspiratory Pressure (CM H2O P) 18 Chemistry Sodium (137 - 145 mmol/L) 139 Potassium (3.5 - 5.1 mmol/L) 4.9 Chloride (98 - 107 mmol/L) 91 L Carbon Dioxide (22 - 30 mmol/L) 36 H Anion Gap (5 - 16) 12 BUN (9 - 20 mg/dL) 34 H Creatinine (0.7 - 1.2 mg/dL) 0.5 L Estimated GFR (>60 ml/min) > 60 Glucose (65 - 99 mg/dL) 149 H Calcium (8.4 - 10.2 mg/dL) 8.6 Phosphorus (2.5 - 4.5 mg/dL) 2.5 Magnesium (1.6 - 2.3 mg/dL) 2.3 Total Bilirubin (0.2 - 1.3 mg/dL) 0.5 AST (17 - 59 U/L) 14 L ALT (21 - 72 U/L) 26 Albumin (3.5 - 5.0 g/dL) 3.6 Hematology CBC w Diff NO MAN DIFF REQ WBC (4.8 - 10.8 /CUMM) 7.3 RBC (4.70 - 6.10 /CUMM) 4.82 Hgb (14.0 - 18.0 G/DL) 14.9 Hct (42 - 52 %) 45.9 MCV (80.0 - 94.0 FL) 95.3 H MCH (27.0 - 31.0 PG) 30.8 MCHC (33.0 - 37.0 G/DL) 32.3 L RDW (11.5 - 14.5 %) 12.7 Plt Count (130 - 400 /CUMM) 270 MPV (7.4 - 10.4 FL) 7.7 Gran % (42.2 - 75.2 %) 83.6 H Lymphocytes % (20.5 - 51.1 %) 9.4 L Monocytes % (1.7 - 9.3 %) 6.7 Eosinophils % (0 - 5 %) 0.1 Basophils % (0.0 - 2.0 %) 0.2 Absolute Granulocytes (1.4 - 6.5 /CUMM) 6.1 Absolute Lymphocytes (1.2 - 3.4 /CUMM) 0.7 L Absolute Monocytes (0.10 - 0.60 /CUMM) 0.5 Absolute Eosinophils (0.0 - 0.7 /CUMM) 0 Absolute Basophils (0.0 - 0.2 /CUMM) 0 Miscellaneous Phlebotomy Draw Site RIGHT RADIAL 10/19 2049 Blood Gas pH (7.35 - 7.45 PH) 7.34 L pCO2 (35 - 45 TORR) 70 *H pO2 (80 - 100 TORR) 90 HCO3 (21 - 28 MEQ/L) 37 H ABG O2 Sat (Measured) (>96.0 %) 95.0 L P-50 (Temp Corrected) Y Carboxyhemoglobin (1.5 - 5.0 %) 1.3 L O2 Concentration % 30% Temperature (97.0 - 100.0 FARH) 98.3 O2 Delivery Method HIIGH FLOW HI Miscellaneous Phlebotomy Draw Site RIGHT RADIAL Impression/Plan Impression/Plan Impression/Plan: General Appearance: alert, awake, anxious, severe distress Head: atraumatic, normal appearance Neck: normal inspection, supple Respiratory: accessory muscle use, respiratory distress, Wheezing throughout both pulmonary niño Cardiovascular: tachycardia, norml femoral pulses equa Gastrointestinal: normal bowel sounds, soft, non-tender, no organomegaly Extremities: ecchymoses surrounding R hallux Cranial Nerves: normal hearing, normal speech Skin: intact, normal color This is a gentleman with very end-stage COPD, ongoing smoking, recent cocaine use, oxygen dependent COPD with FEV1 of 0.4 L, medication noncompliance, diabetes, hypertension, hyperlipidemia, recent colonoscopy with polypectomy with external and internal hemorrhoids with diverticulosis, previous history of respiratory insufficiency, came into the hospital with significant issues * Improving Acute hypoxemic and hypercarbic respiratory failure due to very severe COPD with exacerbation with medical noncompliance with recent drug use and ongoing smoking. Patient's FEV1 of 0.5 L and unfortunately has very end- stage COPD * Left lower lobe infiltrate / pneumonia with bronchiectasis * Recent CT scan suggestive of slightly enlarged mediastinal and hilar lymph nodes appears reactive with extensive left lower lobe opacification with tree-in -bud opacification with mild bilateral lower lobe bronchiectasis and bronchial wall thickening. Patient does have an 8 mm nodule which needs follow-up CT and is high risk for malignancy * Recent drug use needs to evaluate for any withdrawal was on cocaine * Pna-bgrjrso-bpeccqnhm diabetes / Hyperlipidemia * Extensive tobacco use till recently RECOMMENDATIONS/PLAN Cont high flow Try bipap at hs 16/6 with back up rate of 18 Continue daxgc-bkb-lngjb nebulizer therapy every 6 hours with DuoNeb 60 mg iv solumedrol Continue ceftriaxone and azithromycin for now, change to po ceftin in am Sputum culture Low dose morphine 1-2 mg q 4 prn and lorazepam 0.5 po q12 prn for severe dyspnea and anxiety Lexopro 10 mg Discussed with today and with the patient Pt wishes to be DNI Patient is critically ill prognosis time spent 38 minutes
[2017-10-21 16:00] VITALS: BP 126/66
[2017-10-22] VITALS: BP 126/74
[2017-10-22 05:17] LABS: ABSOLUTE BASOPHIL COUNT 0 /CUMM (0.0-0.2); ABSOLUTE EOSINOPHIL COUNT 0 /CUMM (0.0-0.7); ABSOLUTE GRANULOCYTE CT 6.7 /CUMM (1.4-6.5); ABSOLUTE LYMPH COUNT 0.7 /CUMM (1.2-3.4); ABSOLUTE MONOCYTE COUNT 0.3 /CUMM (0.10-0.60); BASOPHIL % 0.3 % (0.0-2.0); EOSINOPHIL % 0 % (0-5); HEMATOCRIT 45.3 % (42-52); MEAN CORPUSCULAR HGB 31.4 PG (27.0-31.0); MEAN CORPUSCULAR VOLUME 95.2 FL (80.0-94.0); MEAN PLATELET VOLUME 7.9 FL (7.4-10.4); PLATELET COUNT 274 /CUMM (130-400); RBC DISTRIBUTION WIDTH 12.8 % (11.5-14.5); RED BLOOD CELL CT 4.75 /CUMM (4.70-6.10); WHITE BLOOD CELL COUNT 7.7 /CUMM (4.8-10.8)
[2017-10-22 06:20] LABS: GRANULOCYTE % 86.8 % (42.2-75.2)
[2017-10-22 08:00] VITALS: BP 130/70
--- NOTE | 2017-10-22 08:21 | PN- CRCU ---
Subjective HPI/Critical Care Issues: The patient is awake and alert. He appears comfortable on high flow oxygen. He was comfortable on oxygen. He has heme positive stools. Objective Current Medications: Current Medications Sig/Deidra Start time Last Medication Dose Route Stop Time Status Admin Acetaminophen 1,000 MG Q6P PRN 10/18 0030 AC IV Albuterol Sulfate 3 ML Q4 10/19 2200 AC 10/22 INH 0424 Atorvastatin Calcium 5 MG 1700 10/18 1700 AC 10/21 PO 1607 Azithromycin 500 MG DAILY 10/18 09 r 10/21 Sodium Chloride 250 ML IV 10/25 2200 0842 Ceftriaxone Sodium 1,000 MG DAILY 10/18 09 r 10/21 IV 10/25 2300 0854 Cholecalciferol 1,000 IU DAILY 10/18 09 AC 10/21 PO 0840 Duloxetine HCl 30 MG DAILY 10/18 09 AC 10/21 PO 0839 Enoxaparin Sodium 40 MG DAILY 10/18 09 AC 10/21 SC 0839 Escitalopram Oxalate 10 MG DAILY 10/19 1031 AC 10/21 PO 0840 Guaifenesin 600 MG Q12 10/21 0900 AC 10/21 PO 2100 Insulin Aspart 0 TIDAC 10/22 0800 r SC Insulin Detemir 7 UNITS BID 10/21 2100 AC 10/21 SC 2100 Ipratropium [place] 2.5 ML Q4 10/18 0200 AC 10/22 INH 0424 Lorazepam 0.5 MG Q12P PRN 10/20 1100 AC 10/21 IV 2236 Losartan Potassium 25 MG DAILY 10/18 0900 AC 10/21 PO 0840 Methylprednisolone 60 MG Q8 10/21 2200 AC 10/22 IV 0543 Methylprednisolone 40 MG Q8 10/20 1400 DC 10/21 IV 1422 Morphine Sulfate 2 MG Q4P PRN 10/20 1100 AC 10/21 IV 0547 Vital Signs & I&O Last 24 Hrs of Vitals and I&O: Vital Signs Date Time Temp Pulse Resp B/P B/P Pulse O2 O2 Flow FiO2 Mean Ox Delivery Rate 10/22 0446 97 Nasal 30% Cannula 10/22 0422 97 92 10/22 0400 96 BIPAP 30% 10/22 0312 87 96 10/22 0145 93 BIPAP 30% 10/22 0038 77 96 10/22 0000 92 BIPAP 30% 10/22 0000 96.1 85 24 126/74 92 BIPAP 30% 10/21 2222 93 94 10/21 2000 93 Nasal 30% Cannula 10/21 1630 94 Nasal 30% Cannula 10/21 1600 Nasal 30% Cannula 10/21 1600 97.6 102 27 126/66 93 Nasal 30% Cannula 10/21 1200 93 Nasal 30% Cannula 10/21 1045 95 Nasal 30% Cannula 10/21 0930 98 Nasal 40% Cannula 10/21 0840 91 138/71 Intake & Output 10/22 1600 10/22 0800 10/22 0000 Intake Total 120 720 Output Total 350 925 Balance -230 -205 Intake, IV 720 Intake, Oral 120 Number 0 Bowel Movements Output, Urine 350 925 Exam General Appearance: alert, awake, anxious, moderate distress Head: atraumatic, normal appearance Neck: normal inspection, supple Respiratory: wheezing (B/L throughout) Cardiovascular: regular rate/rhythm, tachycardia Gastrointestinal: normal bowel sounds, soft, non-tender, no organomegaly Extremities: normal inspection, normal capillary refill Cranial Nerves: normal hearing, normal speech Results Last 24 Hrs of Lab Results: Laboratory Tests 10/22/17 0500: Hemoglobin A1c Pending 10/22/17 0405: Anion Gap 7, Estimated GFR > 60, Glucose 237 H, Calcium 9.2, Phosphorus 2.8, Magnesium 2.2, Total Bilirubin 0.6, AST 13 L, ALT 28, Albumin 3.4 L, CBC w Diff NO MAN DIFF REQ, RBC 4.75, MCV 95.2 H, MCH 31.4 H, MCHC 33.0, RDW 12.8, MPV 7.9, Gran % 86.8 H, Lymphocytes % 9.2 L, Monocytes % 3.7, Eosinophils % 0, Basophils % 0.3, Absolute Granulocytes 6.7 H, Absolute Lymphocytes 0.7 L, Absolute Monocytes 0.3, Absolute Eosinophils 0, Absolute Basophils 0 Impression/Plan Impression/Plan Impression/Plan: 1. End-stage COPD with ongoing smoking. AECOPD. 2. Chronic oxygen dependent COPD with an FEV1 of 0.5 L. 3. Acute hypoxemic and hypercarbic respiratory failure in the setting of recent drug use. 4. Left lower lobe infiltrate/pneumonia with bronchiectasis. 5. Qfb-ffihzet-uggboqfon diabetes/hyperlipidemia. 6. Tree in bud opacities, and an 8 mm nodule which will require follow-up. Recommendations: * Continue high flow oxygen. * Continue nocturnal BiPAP as tolerated. * Wajbsj-eqq-zyjag nebulizer treatments every 6 hours with duo nebs. * Continue IV Solumedrol, will titrate slowly as the patient improves. * Agree with change agent to ceftin. * Low dose morphine as needed. Avoid oversedation. * Continue blood sugar control. * Guaic all stools, monitory for bleeding. * DVT prophylaxis.
--- NOTE | 2017-10-22 08:43 | PN- Resident CRCU ---
Subjective HPI/CRCU Issues: #Ykaik-pd-kmrcxrf hypercarbic respiratory failure in the setting of end-stage COPD #Acute COPD exacerbation #Non-insulin dependant DM #Hyperlipidemia #H/o cocaine abuse 24 Hour Events: Pt seen and examined at bedside this AM. He looks less in distress today - used BiPAP the whole night. He remains on 30% FiO2. was at bedside. Objective Vital Signs & I&O Last 8 Hrs of Vitals and I&O: Laboratory Tests 10/22/17 0500: Hemoglobin A1c 7.8 H 10/22/17 0405: Anion Gap 7, Estimated GFR > 60, Glucose 237 H, Calcium 9.2, Phosphorus 2.8, Magnesium 2.2, Total Bilirubin 0.6, AST 13 L, ALT 28, Albumin 3.4 L, CBC w Diff NO MAN DIFF REQ, RBC 4.75, MCV 95.2 H, MCH 31.4 H, MCHC 33.0, RDW 12.8, MPV 7.9, Gran % 86.8 H, Lymphocytes % 9.2 L, Monocytes % 3.7, Eosinophils % 0, Basophils % 0.3, Absolute Granulocytes 6.7 H, Absolute Lymphocytes 0.7 L, Absolute Monocytes 0.3, Absolute Eosinophils 0, Absolute Basophils 0 Microbiology 10/22 1999 LOWER RESP: Respiratory Culture - COLB 10/22 1999 LOWER RESP: Gram Stain - COLB Vital Signs Date Time Temp Pulse Resp B/P B/P Pulse O2 O2 Flow FiO2 Mean Ox Delivery Rate 10/22 0901 94 Nasal 30% Cannula 10/22 0800 99.0 94 26 130/70 94 Nasal 30% Cannula 10/22 0800 94 Nasal 30% Cannula 10/22 0446 97 Nasal 30% Cannula 10/22 0422 97 92 10/22 0400 96 BIPAP 30% 10/22 0312 87 96 10/22 0145 93 BIPAP 30% 10/22 0038 77 96 10/22 0000 92 BIPAP 30% 10/22 0000 96.1 85 24 126/74 92 BIPAP 30% 10/21 2222 93 94 10/22 1999 93 Nasal 30% Cannula 10/21 1630 94 Nasal 30% Cannula 10/21 1600 Nasal 30% Cannula 10/21 1600 97.6 102 27 126/66 93 Nasal 30% Cannula 10/21 1200 93 Nasal 30% Cannula 10/21 1045 95 Nasal 30% Cannula 10/21 0830 98 Nasal 40% Cannula Intake & Output 10/22 1600 10/22 0800 10/22 0000 Intake Total 120 720 Output Total 350 925 Balance -230 -205 Intake, IV 720 Intake, Oral 120 Number 0 Bowel Movements Output, Urine 350 925 Exam General Appearance: alert, awake, mild distress, looked more comfortable today Head: atraumatic, normal appearance Neck: normal inspection, supple Respiratory: chest non-tender, wheezing, mild respiratory distress Cardiovascular: regular rate/rhythm Gastrointestinal: normal bowel sounds, soft, non-tender, no organomegaly Extremities: normal inspection, normal capillary refill Current Medications: Current Medications Sig/Deidra Start time Last Medication Dose Route Stop Time Status Admin Acetaminophen 1,000 MG Q6P PRN 10/18 0030 AC IV Albuterol Sulfate 3 ML Q4 10/19 2200 AC 10/22 INH 0900 Atorvastatin Calcium 5 MG 1700 10/18 1700 AC 10/21 PO 1607 Azithromycin 500 MG DAILY 10/18 899 AC 10/21 Sodium Chloride 250 ML IV 10/250 0842 Ceftriaxone Sodium 1,000 MG DAILY 10/18 09 AC 10/21 IV 10/25 2300 0854 Cholecalciferol 1,000 IU DAILY 10/18 09 AC 10/21 PO 0840 Duloxetine HCl 30 MG DAILY 10/18 09 AC 10/21 PO 0839 Enoxaparin Sodium 40 MG DAILY 10/18 0900 AC 10/21 SC 0839 Escitalopram Oxalate 10 MG DAILY 10/19 1031 AC 10/21 PO 0840 Guaifenesin 600 MG Q12 10/21 0900 AC 10/21 PO 2100 Insulin Aspart 0 TIDAC 10/22 0800 AC SC Insulin Detemir 7 UNITS BID 10/21 2100 AC 10/21 SC 2100 Ipratropium [place] 2.5 ML Q4 10/18 0200 AC 10/22 INH 0900 Lorazepam 0.5 MG Q12P PRN 10/20 1100 AC 10/21 IV 2236 Losartan Potassium 25 MG DAILY 10/18 09 AC 10/21 PO 0840 Methylprednisolone 60 MG Q8 10/21 2200 AC 10/22 IV 0543 Methylprednisolone 40 MG Q8 10/20 1400 DC 10/21 IV 1422 Morphine Sulfate 2 MG Q4P PRN 10/20 1100 AC 10/21 IV 0547 Impression/Plan Impression/Problem List Impression: Mr. Dinero is a 62 y/o M with PMH of COPD on 2L O2@home, significant tobacco use history, Non-IDDM, depression and h/o cocaine abuse that was brought to the ED due to AMS and SOB. Patient states during the am of admission, pt had a colonoscopy due to BRBPR s/p polypectomyand subsequently started to progressively feel more SOB. On the ED pt was found to have AMS, he was placed on BiPAP at 100% FiO2. His initial admission labs showed evidence of acidosis, hypercarbia and hypoxia. He was admitted to the ICU for management of acute-on- chronic hypercarbic respiratory failure and COPD exacerbation. IMPRESSION #Pqrhb-cb-crvemyt hypercarbic respiratory failure in the setting of end-stage COPD #Acute COPD exacerbation #Non-insulin dependant DM #Hyperlipidemia #H/o cocaine abuse #Fldnm-qb-fyznogg hypercarbic respiratory failure in the setting of end-stage COPD/COPD Exacerbation Patient's latest PFT'S on record demostrates a severely reduced FEV1; he has a chronic history of tobacco use up until last month -- with two to three packs per day for over 30 years. His initial ABG showed pH 7.23, PCO2 88, PO2 370, HCO3 36 on BiPAP with 100% FiO2. This picture is consistent with acute-on- chronic hypercarbic respiratory failure. Urinary ag for Legionella/Strep Pneumo are negative, while the rest show no growth so far. CXR is unremarkable for any acute pathology. CTA on 10/14 showed a 7mm nodule given his history is concerning for malignancy. He is currently on high flow NC with 30% FiO2. -BiPAP @ night -Duonebs q4 -Low dose morphine 1-2mg PRN for dyspnea, ativan 0.25mg q12P -Lexapro 10 mg #Acute COPD exacerbation Pt's initial presentation is concerning for COPD exacerbation. Has been afebrile with a normal WBC. CT does show mild bilateral lower lobe bronchiectasis with some areas of patchy opacification. He is was changed from IV abx to oral. -Solumedrol 60mg IV q8 -Azithro switched to PO, ceftriaxone changed to cefuroxime. Day #5 #Non-insulin dependant DM Pt's blood sugar has been >200. He is on a heart healthy diet. -Continue intermediate novolog ISS #Hyperlipidemia Pt's home medicine has been continued. -Continue atorvastatin DNI Consistent Carbohydrate 2 DVT PPX: PHARM, MECH Problem List: 1. Decompensated chronic obstructive pulmonary disease with exacerbation 2. Pneumonia Pain Ratin Tomorrow's Labs & Rationales: . Plan DVT/Prophylaxis: mechanical, pharmacological
[2017-10-22 16:00] VITALS: BP 147/77
[2017-10-23] VITALS: BP 130/80
[2017-10-23 07:21] LABS: ABSOLUTE BASOPHIL COUNT 0 /CUMM (0.0-0.2); ABSOLUTE EOSINOPHIL COUNT 0 /CUMM (0.0-0.7); ABSOLUTE GRANULOCYTE CT 6.1 /CUMM (1.4-6.5); ABSOLUTE LYMPH COUNT 0.7 /CUMM (1.2-3.4); ABSOLUTE MONOCYTE COUNT 0.2 /CUMM (0.10-0.60); BASOPHIL % 0.3 % (0.0-2.0); EOSINOPHIL % 0 % (0-5); HEMATOCRIT 44.6 % (42-52); MEAN CORPUSCULAR HGB CONC 32.7 G/DL (33.0-37.0); MEAN CORPUSCULAR VOLUME 94.6 FL (80.0-94.0); MEAN PLATELET VOLUME 7.9 FL (7.4-10.4); PLATELET COUNT 251 /CUMM (130-400); RBC DISTRIBUTION WIDTH 12.6 % (11.5-14.5); RED BLOOD CELL CT 4.71 /CUMM (4.70-6.10); WHITE BLOOD CELL COUNT 7.1 /CUMM (4.8-10.8)
--- NOTE | 2017-10-23 07:34 | PN- CRCU ---
Subjective HPI/Critical Care Issues: The patient is awake and alert. He reports feeling improved overall. He feels less short of breath. He is not expectorating sputum. He continues on high flow oxygen and is on 30%. He also continues on nocturnal BiPAP which he feels is helping. The patient is afebrile and his blood pressure is stable. He continues to have good urine output. There were no overnight events reported. Objective Current Medications: Current Medications Sig/Deidra Start time Last Medication Dose Route Stop Time Status Admin Acetaminophen 1,000 MG Q6P PRN 10/18 0030 AC IV Albuterol Sulfate 3 ML Q4 10/19 2200 AC 10/23 INH 0931 Atorvastatin Calcium 5 MG 1700 10/18 1700 AC 10/22 PO 1737 Azithromycin 500 MG DAILY 10/23 09 AC 10/23 PO 10/24 2300 0925 Azithromycin 500 MG ONCE ONE 10/22 1200 DC 10/22 PO 10/22 1201 1308 Cefuroxime Sodium 500 MG Q12 10/23 09 AC 10/23 PO 10/24 2300 0925 Cholecalciferol 1,000 IU DAILY 10/18 09 AC 10/23 PO 0926 Duloxetine HCl 30 MG DAILY 10/18 0900 AC 10/23 PO 0926 Enoxaparin Sodium 40 MG DAILY 10/18 09 AC 10/23 SC 0926 Escitalopram Oxalate 10 MG DAILY 10/19 1031 AC 10/23 PO 0926 Guaifenesin 600 MG Q12 10/21 0900 AC 10/23 PO 0926 Insulin Aspart 0 TIDAC 10/22 0800 AC 10/23 SC 0800 Insulin Detemir 8 UNITS BID 10/23 2100 AC SC Insulin Detemir 7 UNITS BID 10/21 2100 DC 10/23 SC 0926 Ipratropium [place] 2.5 ML Q4 10/18 0200 AC 10/23 INH 0931 Lorazepam 0.25 MG Q12P PRN 10/22 1145 AC 10/22 IV 2348 Lorazepam 0.5 MG Q12P PRN 10/20 1100 DC 10/21 IV 2236 Losartan Potassium 25 MG DAILY 10/18 09 AC 10/23 PO 0926 Methylprednisolone 60 MG Q12 10/23 2100 AC IV Methylprednisolone 60 MG Q8 10/21 2200 DC 10/23 IV 0631 Morphine Sulfate 2 MG Q4P PRN 10/20 1100 AC 10/21 IV 0547 Vital Signs & I&O Last 24 Hrs of Vitals and I&O: Vital Signs Date Time Temp Pulse Resp B/P B/P Pulse O2 O2 Flow FiO2 Mean Ox Delivery Rate 10/23 0532 92 95 10/23 0401 75 95 10/23 0102 87 93 10/23 0101 93 BIPAP 30% 10/23 0000 96 BIPAP 30% 10/23 0000 97.5 95 20 130/80 96 BIPAP 30% 10/22 2321 85 95 10/22 2056 96 Nasal 30% Cannula 10/22 2000 96 Nasal 30% Cannula 10/22 1600 97 Nasal 3.0L Cannula 10/22 1600 98.0 92 16 147/77 97 10/22 1220 94 Nasal 3.0L Cannula 10/22 1133 Nasal Cannula 10/22 0930 98 137/66 10/22 0901 94 Nasal 30% Cannula 10/22 0800 99.0 94 26 130/70 94 Nasal 30% Cannula 10/22 0800 94 Nasal 30% Cannula Intake & Output 10/23 0800 10/23 0000 10/22 1600 Intake Total 370 490 Output Total 1400 700 Balance -1030 -210 Intake, Oral 370 490 Number 2 Bowel Movements Output, Urine 1400 700 Exam General Appearance: alert, awake, anxious, minimal distress Head: atraumatic, normal appearance Neck: normal inspection, supple Respiratory: wheezing (B/L throughout) Cardiovascular: regular rate/rhythm, tachycardia Gastrointestinal: normal bowel sounds, soft, non-tender, no organomegaly Extremities: normal inspection, normal capillary refill Cranial Nerves: normal hearing, normal speech Results Last 24 Hrs of Lab Results: Laboratory Tests 10/23/17 0500: Sodium Pending, Potassium Pending, Chloride Pending, Carbon Dioxide Pending, Anion Gap Pending, BUN Pending, Creatinine Pending, Glucose Pending, Calcium Pending, Phosphorus Pending, Magnesium Pending, Total Bilirubin Pending, AST Pending, ALT Pending, Albumin Pending, CBC w Diff Pending, WBC Pending, RBC Pending, Hgb Pending, Hct Pending, MCV Pending, MCH Pending, MCHC Pending, RDW Pending, Plt Count Pending, MPV Pending Impression/Plan Impression/Plan Impression/Plan: 1. End-stage COPD with ongoing smoking. AECOPD. 2. Chronic oxygen dependent COPD with an FEV1 of 0.5 L. 3. Acute hypoxemic and hypercarbic respiratory failure in the setting of recent drug use. 4. Left lower lobe infiltrate/pneumonia with bronchiectasis. 5. Xqm-uyisabw-ccwlvecyi diabetes/hyperlipidemia. 6. Tree in bud opacities, and an 8 mm nodule which will require follow-up. Recommendations: * Continue high flow oxygen for saturations greater than 92%. * Please give nighttime Ativan 30 minutes prior to putting BiPAP on. Please put in nursing orders to ensure this is given appropriately. * Continue nocturnal BiPAP as tolerated. * Jxcsyn-njb-upqfo nebulizer treatments every 6 hours with duo nebs. * Continue IV Solumedrol, 60 mg every 12 hours, will titrate slowly as the patient improves. * Agree with tire changer aircraft to ceftin. * Low dose morphine as needed. Avoid oversedation. * Continue blood sugar control. * Guaic all stools, monitory for bleeding. * DVT prophylaxis at all times. * Downgrade to general med.
[2017-10-23 07:51] LABS: GRANULOCYTE % 85.6 % (42.2-75.2)
[2017-10-23 08:00] VITALS: BP 120/70
--- NOTE | 2017-10-23 08:08 | PN- Resident CRCU ---
Subjective HPI/CRCU Issues: Acute on chronic hypercarbic respiratory failure End-stage COPD COPD exacerbation DM with hyperglycemia, on steroids 24 Hour Events: No acute overnight events Persistent dyspnea but significantly improved from presentation Stable oxygenation on fio2 0.3 high flow NC Using bipap prn and qhs with low dose ativan and morphine prn Objective Vital Signs & I&O Last 8 Hrs of Vitals and I&O: Afebrile, HR 90s, RR 20, BP 130/80, SpO2 mid 90s on Fio2 0.3 Exam General Appearance: well developed/nourished, no apparent distress, alert, mild distress (on high flow NC) Respiratory: decreased breath sounds, severely restricted air movement without audible wheezing, crackles or rhonchi Cardiovascular: regular rate/rhythm, normal peripheral pulses Gastrointestinal: normal bowel sounds, soft, non-tender Extremities: normal inspection, normal capillary refill, normal range of motion, no edema Current Medications: Current Medications Sig/Deidra Start time Last Medication Dose Route Stop Time Status Admin Acetaminophen 1,000 MG Q6P PRN 10/18 0030 AC IV Albuterol Sulfate 3 ML Q4 10/19 2200 AC 10/23 INH 0931 Atorvastatin Calcium 5 MG 1700 10/18 1700 AC 10/22 PO 1737 Azithromycin 500 MG DAILY 10/23 09 AC 10/23 PO 10/24 2300 0925 Azithromycin 500 MG ONCE ONE 10/22 1200 DC 10/22 PO 10/22 1201 1308 Azithromycin 500 MG DAILY 10/18 09 DC 10/21 Sodium Chloride 250 ML IV 10/25 2199 0842 Ceftriaxone Sodium 1,000 MG DAILY 10/18 09 DC 10/22 IV 10/25 2300 0930 Cefuroxime Sodium 500 MG Q12 10/23 09 AC 10/23 PO 10/24 2300 0925 Cholecalciferol 1,000 IU DAILY 10/18 09 AC 10/23 PO 925 Duloxetine HCl 30 MG DAILY 10/18 09 AC 10/23 PO 925 Enoxaparin Sodium 40 MG DAILY 10/18 09 AC 10/23 SC 09 Escitalopram Oxalate 10 MG DAILY 10/19 1031 AC 10/23 PO 925 Guaifenesin 600 MG Q12 10/21 09 AC 10/23 PO 09 Insulin Aspart 0 TIDAC 10/22 08 AC 10/23 SC 0800 Insulin Detemir 8 UNITS BID 10/23 2100 UNVr SC Insulin Detemir 7 UNITS BID 10/21 2100 DC 10/23 SC 0926 Ipratropium [place] 2.5 ML Q4 10/18 0200 AC 10/23 INH 0931 Lorazepam 0.25 MG Q12P PRN 10/22 1145 AC 10/22 IV 2348 Lorazepam 0.5 MG Q12P PRN 10/20 1100 DC 10/21 IV 2236 Losartan Potassium 25 MG DAILY 10/18 0900 AC 10/23 PO 0926 Methylprednisolone 60 MG Q12 10/23 2100 AC IV Methylprednisolone 60 MG Q8 10/21 2200 DC 10/23 IV 0631 Morphine Sulfate 2 MG Q4P PRN 10/20 1100 AC 10/21 IV 0547 Impression/Plan Impression/Problem List Impression: 62 y/o M with PMH of COPD on 2L O2@home, significant tobacco use history, Non- IDDM, depression and h/o cocaine abuse that was brought to the ED due to AMS and SOB. Patient states during the am of admission, pt had a colonoscopy due to BRBPR s/p polypectomyand subsequently started to progressively feel more SOB. On the ED pt was found to have AMS, he was placed on BiPAP at 100% FiO2. His initial admission labs showed evidence of acidosis, hypercarbia and hypoxia. He was admitted to the ICU for management of eelfv-qa-ahyvqjq hypercarbic respiratory failure and COPD exacerbation. Acute on chronic hypercarbic respiratory failure Acute exacerbation of end-stage COPD Severely reduced FEV1 on recent PFT'S Recent tobacco use Initial ABG pH 7.23, PCO2 88, PO2 370, HCO3 36 on BiPAP with 100% FiO2. Urinary ag for Legionella/Strep Pneumo and cultures all negative Chest x-ray negative for infiltrate CTA on 10/14 showed a 7mm nodule concerning for malignancy. Oxygenating well on high flow NC with FiO2 0.3 Continue nocturnal BiPAP and highflow during the day TRC evaluation Continue nebulized albuterol and ipatropium Steroids gradually being tapered Low dose morphine and ativan prn for dyspnea Started on Lexapro 10 mg, continue cymbalta COPD exacerbation Afebrile Solumedrol 60mg IV q8 decreased to Q12H, will need gradual steroid taper Azithromycin and cefuroxime, Day #6, will discontinue after one week course DM Accuchecks TIDAC, last 24 hours 180-270 Diabetic diet Levemir 8 units sc bid Medium dose novolog insulin sliding scale A1C 7.8 Hyperlipidemia Continue atorvastatin HTN: Continue losartan Diabetic diet DVT ppx-ALPs, lovenox 40mg sc DNI Stable for general medicine Problem List: 1. Decompensated chronic obstructive pulmonary disease with exacerbation 2. COPD exacerbation 3. Diabetes mellitus 4. COPD exacerbation Pain Ratin Tomorrow's Labs & Rationales: abg prn Plan DVT/Prophylaxis: mechanical, pharmacological
[2017-10-23 15:36] VITALS: BP 140/80
[2017-10-23 21:57] VITALS: BP 132/60
[2017-10-24 06:20] VITALS: BP 148/80
--- NOTE | 2017-10-24 08:00 | PN- Housestaff ---
Nathan Nuno 10/24/17 0759: Subjective Follow-up For: COPD exacerbation Complaints: no complaints Subjective: Patient seen at bedside sitting in chair. is present. States he feels much improved overally, less short of breath. No overnight events. Denies any pain. Denies fever/chills/night sweats/chest pain/abdominal pain/urinary symptoms. Review of Systems Constitutional: Reports: see HPI. Objective Last 24 Hrs of Vital Signs/I&O Vital Signs Date Time Temp Pulse Resp B/P B/P Pulse O2 O2 Flow FiO2 Mean Ox Delivery Rate 10/24 0910 83 148/80 10/24 0903 93 Nasal 3.5L Cannula 10/24 0800 94 Nasal 3.5L Cannula 10/24 0620 98.1 83 18 148/80 94 BIPAP 10/24 0040 97 93 10/24 0000 95 BIPAP 10/23 2305 107 92 10/23 2157 98.4 95 18 132/60 94 Nasal Cannula 10/23 1620 90 Nasal 3.0L Cannula 10/23 1600 92 Nasal 3.5L Cannula 10/23 1536 98.1 108 24 140/80 98 Nasal 3.0L Cannula Intake & Output 10/24 1600 10/24 0800 10/24 0000 Intake Total 360 300 Output Total 1325 500 Balance -1325 360 -200 Intake, Oral 360 300 Output, Urine 1325 500 Physical Exam General Appearance: Alert, Oriented X3, Cooperative, No Acute Distress Skin: No Rashes, No Breakdown, No Significant Lesion Skin Temp/Moisture Exam: Warm/Dry HEENT: Atraumatic, PERRLA, EOMI, Mucous Membr. moist/pink Neck: Supple, No thryomegaly Lymphatic: Axillary nl, Cervical nl Cardiovascular: Regular Rate, Normal S1, Normal S2, No Murmurs, Gallops, Rubs Lungs: wheezes bilaterally, worse on left Abdomen: Normal Bowel Sounds, Soft, No Tenderness, No Hepatospenomegaly, No Masses Neurological: Normal Speech, Strength at 5/5 X4 Ext, Normal Tone, Sensation Intact Extremities: No Clubbing, No Cyanosis Vascular: Normal Pulses, Pulses Symmetrical Current Medications: Current Medications Sig/Deidra Start time Last Medication Dose Route Stop Time Status Admin Acetaminophen 1,000 MG Q6P PRN 10/18 0030 AC IV Albuterol Sulfate 3 ML EVERY 4 HRS/AWAKE 10/23 1200 AC 10/24 INH 1151 Atorvastatin Calcium 5 MG 1700 10/18 1700 AC 10/23 PO 1825 Azithromycin 500 MG DAILY 10/23 09 AC 10/24 PO 10/24 2300 0910 Cefuroxime Sodium 500 MG Q12 10/23 0900 AC 10/24 PO 10/24 2300 1046 Cholecalciferol 1,000 IU DAILY 10/18 09 AC 10/24 PO 0909 Duloxetine HCl 30 MG DAILY 10/18 09 AC 10/24 PO 0910 Enoxaparin Sodium 40 MG DAILY 10/18 09 AC 10/24 SC 0909 Escitalopram Oxalate 10 MG DAILY 10/19 1031 AC 10/24 PO 0910 Guaifenesin 600 MG Q12 10/21 0900 AC 10/24 PO 0910 Insulin Aspart 0 TIDAC 10/22 0800 AC 10/24 SC 1238 Insulin Detemir 8 UNITS BID 10/23 2100 AC 10/24 SC 0908 Ipratropium [place] 2.5 ML EVERY 4 HRS/AWAKE 10/23 1200 AC 10/24 INH 1151 Lorazepam 0.25 MG Q12P PRN 10/22 1145 AC 10/23 IV 2228 Losartan Potassium 25 MG DAILY 10/18 09 AC 10/24 PO 0910 Methylprednisolone 60 MG Q12 10/23 2100 AC 10/24 IV 0906 Morphine Sulfate 2 MG Q4P PRN 10/20 1100 AC 10/21 IV 0547 Assessment/Plan Assessment: 1. End-stage COPD with ongoing smoking. AECOPD. 2. Chronic oxygen dependent COPD with an FEV1 of 0.5 L. 3. Acute hypoxemic and hypercarbic respiratory failure in the setting of recent drug use. 4. Left lower lobe infiltrate/pneumonia with bronchiectasis. 5. Iwz-pfoleoj-lsgmhhlsq diabetes/hyperlipidemia. 6. Tree in bud opacities, and an 8 mm nodule which will require follow-up. Recommendations: * Continue high flow oxygen for saturations greater than 92%. * Please give nighttime Ativan 30 minutes prior to putting BiPAP on. Please put in nursing orders to ensure this is given appropriately. * Continue nocturnal BiPAP as tolerated. * Xleyri-vjx-jxwaz nebulizer treatments every 6 hours with duo nebs. * Continue IV Solumedrol, 60 mg every 12 hours, will titrate slowly as the patient improves. * Agree with oil change technician to ceftin. * Low dose morphine as needed. Avoid oversedation. * Continue blood sugar control. * Guaic all stools, monitory for bleeding. * DVT prophylaxis at all times. * Downgraded to general med. Problem List: 1. Decompensated chronic obstructive pulmonary disease with exacerbation 2. Pneumonia Pain Ratin Pain Location: none Pain Goal: Pain 4 or less Pain Plan: pathway Tomorrow's Labs & Rationales: cbc, bep Yenny COOPER,Amir 10/24/17 1322: Attending MD Review Statement Attending Statement Attending MD Statement: examined this patient, discuss w/resident/PA/HYDROGEN BRAZE FURNACE OPERATOR, agreed w/resident/PA/HYDROGEN BRAZE FURNACE OPERATOR, discussed with family, reviewed EMR data (avail), discussed with nursing Attending Assessment/Plan: Pt was seen and evaluate. Was tx from ICU. Currently reports doing OK --dec BS b/l --appreciate Pulm recs --cont to taper steroids as tolerated --patient advised to quit smoking --family was updated
--- NOTE | 2017-10-24 11:15 | PN- Pulmonary ---
Subjective HPI/Critical Care Issues: Patient is awake alert and appears comfortable on nasal oxygen Objective Current Medications: Current Medications Sig/Deidra Start time Last Medication Dose Route Stop Time Status Admin Acetaminophen 1,000 MG Q6P PRN 10/18 0030 AC IV Albuterol Sulfate 3 ML EVERY 4 HRS/AWAKE 10/23 1200 AC 10/24 INH 0855 Albuterol Sulfate 3 ML Q4 10/19 2200 DC 10/23 INH 0931 Atorvastatin Calcium 5 MG 1700 10/18 1700 AC 10/23 PO 1825 Azithromycin 500 MG DAILY 10/23 0900 AC 10/24 PO 10/24 2300 0910 Cefuroxime Sodium 500 MG Q12 10/23 0900 AC 10/24 PO 10/24 2300 1046 Cholecalciferol 1,000 IU DAILY 10/18 09 AC 10/24 PO 0909 Duloxetine HCl 30 MG DAILY 10/18 09 AC 10/24 PO 0910 Enoxaparin Sodium 40 MG DAILY 10/18 09 AC 10/24 SC 0909 Escitalopram Oxalate 10 MG DAILY 10/19 1031 AC 10/24 PO 0910 Guaifenesin 600 MG Q12 10/21 0900 AC 10/24 PO 0910 Insulin Aspart 0 TIDAC 10/22 0800 AC 10/24 SC 0908 Insulin Detemir 8 UNITS BID 10/23 2100 AC 10/24 SC 0908 Ipratropium [place] 2.5 ML EVERY 4 HRS/AWAKE 10/23 1200 AC 10/24 INH 0856 Ipratropium [place] 2.5 ML Q4 10/18 0200 DC 10/23 INH 0931 Lorazepam 0.25 MG Q12P PRN 10/22 1145 AC 10/23 IV 2228 Losartan Potassium 25 MG DAILY 10/18 09 AC 10/24 PO 0910 Methylprednisolone 60 MG Q12 10/23 2100 AC 10/24 IV 0906 Morphine Sulfate 2 MG Q4P PRN 10/20 1100 AC 10/21 IV 0547 Vital Signs & I&O Last 24 Hrs of Vitals and I&O: Vital Signs Date Time Temp Pulse Resp B/P B/P Pulse O2 O2 Flow FiO2 Mean Ox Delivery Rate 10/24 0910 83 148/80 10/24 0903 93 Nasal 3.5L Cannula 10/24 0800 94 Nasal 3.5L Cannula 10/24 0620 98.1 83 18 148/80 94 BIPAP 10/24 0040 97 93 10/24 0000 95 BIPAP 10/23 2305 107 92 10/23 2157 98.4 95 18 132/60 94 Nasal Cannula 10/23 1620 90 Nasal 3.0L Cannula 10/23 1600 92 Nasal 3.5L Cannula 10/23 1536 98.1 108 24 140/80 98 Nasal 3.0L Cannula 10/23 1315 93 Nasal 3.0L Cannula Intake & Output 10/24 1600 10/24 0800 10/24 0000 Intake Total 360 300 Output Total 500 Balance 360 -200 Intake, Oral 360 300 Output, Urine 500 Since saturation 3.5 L 93% exam of his chest shows diminished breath sounds no wheezes cardiac exam shows a regular S1 and S2 without murmurs Impression/Plan Impression/Plan Impression/Plan: 62-year-old with severe oxygen-dependent COPD is clinically improved. Recommendations: Decrease Solu-Medrol to 40 every 12. Continue when necessary BiPAP. Per FiO2 his saturations allow
[2017-10-24 15:49] VITALS: BP 120/60
[2017-10-24 22:09] VITALS: BP 142/70
[2017-10-25 06:04] VITALS: BP 140/72
--- NOTE | 2017-10-25 07:14 | PN- Housestaff ---
Subjective Follow-up For: COPD exacerbation Complaints: no complaints Subjective: Patient seen and examined at the bedside, comfortably lying in bed. States he continues to feel improved overall, less short of breath. No overnight events. Patient looking forward to relocating to short-term rehab. Denies any pain. Denies fever/chills/night sweats/chest pain/abdominal pain/urinary symptoms. Review of Systems Constitutional: Reports: see HPI. Objective Last 24 Hrs of Vital Signs/I&O Vital Signs Date Time Temp Pulse Resp B/P B/P Pulse O2 O2 Flow FiO2 Mean Ox Delivery Rate 10/25 1416 98.2 100 20 120/70 98 Nasal 3.5L Cannula 10/25 0837 84 94 Nasal 3.5L Cannula 10/25 0822 95 Nasal 4.0L Cannula 10/25 0812 92 118/68 10/25 0800 95 Nasal 3.5L Cannula 10/25 0604 98.4 79 20 140/72 96 Nasal Cannula 10/25 0008 86 96 10/25 0000 Nasal 3.5L Cannula 10/24 2242 85 95 10/24 2209 98.2 106 20 142/70 95 Nasal 3.5L Cannula 10/24 1620 92 Nasal 3.5L Cannula Intake & Output 10/25 1600 10/25 0800 10/25 0000 Intake Total 600 200 200 Output Total 3482 696 0589 Balance -850 -450 -1050 Intake, Oral 600 200 200 Number 1 0 Bowel Movements Output, Urine 7261 740 3067 Physical Exam General Appearance: Alert, Oriented X3, Cooperative, No Acute Distress Skin: No Rashes, No Breakdown, No Significant Lesion Skin Temp/Moisture Exam: Warm/Dry HEENT: Atraumatic, PERRLA, EOMI, Mucous Membr. moist/pink Neck: Supple, No JVD, No thryomegaly Lymphatic: Axillary nl, Cervical nl Cardiovascular: Regular Rate, Normal S1, Normal S2, No Murmurs, Gallops, Rubs Lungs: improved from yesterday, no wheezes appreciated, diffuse decreased air movement Abdomen: Soft, No Tenderness, No Hepatospenomegaly Neurological: Normal Speech, Strength at 5/5 X4 Ext, Normal Tone, Sensation Intact Extremities: No Clubbing, No Cyanosis, No Edema, Normal Pulses, No Tenderness/ Swelling Vascular: Normal Pulses, Pulses Symmetrical Current Medications: Current Medications Sig/Deidra Start time Last Medication Dose Route Stop Time Status Admin Acetaminophen 1,000 MG Q6P PRN 10/18 0030 AC IV Albuterol Sulfate 3 ML EVERY 4 HRS/AWAKE 10/23 1200 AC 10/25 INH 1152 Atorvastatin Calcium 5 MG 1700 10/18 1700 AC 10/24 PO 1720 Azithromycin 500 MG DAILY 10/23 0900 DC 10/24 PO 10/24 2300 0910 Cefuroxime Sodium 500 MG Q12 10/23 0900 DC 10/24 PO 10/24 2300 2058 Cholecalciferol 1,000 IU DAILY 10/18 09 AC 10/25 PO 0811 Duloxetine HCl 30 MG DAILY 10/18 09 AC 10/25 PO 08 Enoxaparin Sodium 40 MG DAILY 10/18 09 AC 10/25 SC 0810 Escitalopram Oxalate 10 MG DAILY 10/19 1031 AC 10/25 PO 0812 Guaifenesin 600 MG Q12 10/21 0900 AC 10/25 PO 0811 Insulin Aspart 0 TIDAC 10/22 08 AC 10/25 SC 1234 Insulin Detemir 8 UNITS BID 10/23 2100 AC 10/25 SC 0811 Ipratropium [place] 2.5 ML EVERY 4 HRS/AWAKE 10/23 1200 AC 10/25 INH 1152 Lorazepam 0.25 MG Q12P PRN 10/22 1145 AC 10/24 IV 2158 Losartan Potassium 25 MG DAILY 10/18 09 AC 10/25 PO 0812 Methylprednisolone 60 MG DAILY 10/26 0900 AC IV Methylprednisolone 60 MG Q12 10/23 2100 DC 10/25 IV 0812 Morphine Sulfate 2 MG Q4P PRN 10/20 1100 AC 10/21 IV 0547 Nicotine 2 MG ONCE ONE 10/25 1445 DC PO 10/25 1446 Nicotine 21 MG ONCE ONE 10/25 1430 [facility] 10/25 1431 Patient Medication 1 ED ONE ONE 10/25 1300 DC Teaching ED 10/25 1301 Last 24 Hrs of Lab/[place] Results Last 24 Hrs of Labs/Mics: Laboratory Tests 10/25/17 1310: Anion Gap 8, Estimated GFR > 60, BUN/Creatinine Ratio 70.0 H, CBC w Diff NO MAN DIFF REQ, RBC 4.95, MCV 96.1 H, MCH 31.6 H, MCHC 32.8 L, RDW 11.9, MPV 8.6, Gran % 93.8 H, Lymphocytes % 4.4 L, Monocytes % 0.3 L, Eosinophils % 0, Basophils % 1.5, Absolute Granulocytes 12.1 H, Absolute Lymphocytes 0.6 L, Absolute Monocytes 0 L, Absolute Eosinophils 0, Absolute Basophils 0.2 Assessment/Plan Assessment: 1. End-stage COPD with ongoing smoking. AECOPD. 2. Chronic oxygen dependent COPD with an FEV1 of 0.5 L. 3. Acute hypoxemic and hypercarbic respiratory failure in the setting of recent drug use. 4. Left lower lobe infiltrate/pneumonia with bronchiectasis. 5. Tny-iokncke-gzhbnbxus diabetes/hyperlipidemia. 6. Tree in bud opacities, and an 8 mm nodule which will require follow-up. Recommendations: * Continue nasal canula at 3.5L * Please give nighttime Ativan 30 minutes prior to putting BiPAP on. Please put in nursing orders to ensure this is given appropriately. * Continue nocturnal BiPAP as tolerated. * Hzlach-qpv-lpyjo nebulizer treatments every 6 hours with duo nebs. * Continue IV Solumedrol, 60 mg q 24hours, will titrate slowly as the patient improves. * DC'ed ceftin * Low dose morphine as needed. Avoid oversedation. * Continue blood sugar control. * Guaic all stools, monitory for bleeding. * DVT prophylaxis at all times. * Downgraded to general med. Anticipated discharge to [place] today Consistent carbohydrate 2 diet Patient is DNI Problem List: 1. Decompensated chronic obstructive pulmonary disease with exacerbation 2. Pneumonia Pain Ratin Pain Location: none Pain Goal: Remain pain free Pain Plan: pathway Tomorrow's Labs & Rationales: none; anticipated discharge
--- NOTE | 2017-10-25 10:32 | PN- Pulmonary ---
Subjective HPI/Critical Care Issues: Patient seen at bedside sitting in chair. States he feels much improved overally , less short of breath and still has dyspnea. No overnight events. Denies any pain. Denies fever/chills/night sweats/chest pain/abdominal pain/urinary symptoms. Objective Current Medications: Current Medications Sig/Deidra Start time Last Medication Dose Route Stop Time Status Admin Acetaminophen 1,000 MG Q6P PRN 10/18 0030 AC IV Albuterol Sulfate 3 ML EVERY 4 HRS/AWAKE 10/23 1200 AC 10/25 INH 0821 Atorvastatin Calcium 5 MG 1700 10/18 1700 AC 10/24 PO 1720 Azithromycin 500 MG DAILY 10/23 09 DC 10/24 PO 10/24 2300 0910 Cefuroxime Sodium 500 MG Q12 10/23 09 DC 10/24 PO 10/24 2300 2058 Cholecalciferol 1,000 IU DAILY 10/18 09 AC 10/25 PO 0811 Duloxetine HCl 30 MG DAILY 10/18 09 AC 10/25 PO 0812 Enoxaparin Sodium 40 MG DAILY 10/18 09 AC 10/25 SC 0810 Escitalopram Oxalate 10 MG DAILY 10/19 1031 AC 10/25 PO 0812 Guaifenesin 600 MG Q12 10/21 09 AC 10/25 PO 0811 Insulin Aspart 0 TIDAC 10/22 08 AC 10/25 SC 0811 Insulin Detemir 8 UNITS BID 10/23 2100 AC 10/25 SC 0811 Ipratropium [place] 2.5 ML EVERY 4 HRS/AWAKE 10/23 1200 AC 10/25 INH 0821 Lorazepam 0.25 MG Q12P PRN 10/22 1145 AC 10/24 IV 2158 Losartan Potassium 25 MG DAILY 10/18 09 AC 10/25 PO 0812 Methylprednisolone 60 MG DAILY 10/26 0900 AC IV Methylprednisolone 60 MG Q12 10/23 2100 DC 10/25 IV 0812 Morphine Sulfate 2 MG Q4P PRN 10/20 1100 AC 10/21 IV 0547 Vital Signs & I&O Last 24 Hrs of Vitals and I&O: Vital Signs Date Time Temp Pulse Resp B/P B/P Pulse O2 O2 Flow FiO2 Mean Ox Delivery Rate 10/25 0837 84 94 Nasal 3.5L Cannula 10/25 08 95 Nasal 4.0L Cannula 10/25 08 92 118/68 10/25 0604 98.4 79 20 140/72 96 Nasal Cannula 10/25 0008 86 96 10/25 0000 Nasal 3.5L Cannula 10/24 2242 85 95 10/24 2209 98.2 106 20 142/70 95 Nasal 3.5L Cannula 10/24 1620 92 Nasal 3.5L Cannula 10/24 1549 98.4 106 20 120/60 92 Intake & Output 10/25 1600 10/25 0800 10/25 0000 Intake Total 200 200 Output Total 521 757 7364 Balance -500 -450 -1050 Intake, Oral 200 200 Number 0 Bowel Movements Output, Urine 465 254 8032 Impression/Plan Impression/Plan Impression/Plan: General Appearance: alert, awake, anxious, severe distress Head: atraumatic, normal appearance Neck: normal inspection, supple Respiratory: accessory muscle use, respiratory distress, Wheezing throughout both pulmonary niño Cardiovascular: tachycardia, norml femoral pulses equa Gastrointestinal: normal bowel sounds, soft, non-tender, no organomegaly Extremities: ecchymoses surrounding R hallux Cranial Nerves: normal hearing, normal speech Skin: intact, normal color This is a gentleman with very end-stage COPD, ongoing smoking, recent cocaine use, oxygen dependent COPD with FEV1 of 0.4 L, medication noncompliance, diabetes, hypertension, hyperlipidemia, recent colonoscopy with polypectomy with external and internal hemorrhoids with diverticulosis, previous history of respiratory insufficiency, came into the hospital with resp failure * Improving Acute hypoxemic and hypercarbic respiratory failure due to very severe COPD with exacerbation Patient's FEV1 of 0.5 L and unfortunately has very end-stage COPD * Left lower lobe infiltrate / pneumonia with bronchiectasis better s/p seven days of abx * Recent CT scan suggestive of slightly enlarged mediastinal and hilar lymph nodes appears reactive with extensive left lower lobe opacification with tree-in -bud opacification with mild bilateral lower lobe bronchiectasis and bronchial wall thickening. Patient does have an 8 mm nodule which needs follow-up CT and is high risk for malignancy * Recent drug use needs to evaluate for any withdrawal was on cocaine * Jbn-jzkjycf-obcyucyil diabetes / Hyperlipidemia * Extensive tobacco use till recently RECOMMENDATIONS/PLAN Cont IV steroids qd an bipap at hs if damian Start po out pt oral Diabetic meds and dc long acting insulin and institute premeal sliding scale Recuce Pt would need [place] eval as he would benefit from inpatient [facility] Rehab Cont other meds Check cxr and cmp and cbc today
[2017-10-25] MEDS ORDERED: NOVOLOG100 UNIT/2 PO (12:05)
[2017-10-25] MEDS ORDERED: PREDNISONE10 M2 PO (12:05)
--- NOTE | 2017-10-25 12:07 | Patient Discharge Instructions ---
Discharge Instructions General Discharge Information Special Instructions: - Please continue using BiPAP at night if tolerated. - Please follow up with your primary care physician Dr. Mosley within 1-2 weeks of discharge. Inform your primary care physician of this admission to [facility]. - Continue your current medications per discharge instructions. - Please watch for these problems: Fever, Chills, Nausea, Vomiting, Shortness of Breath, Productive Cough, Chest Pain/Discomfort, Abdominal Pain, Active Bleeding or Bloody urine/stool. Diet Continue normal diet: Yes Recommended Diet: Diabetic Activity Full Activity/No Limits: Yes Acute Coronary Syndrome Inclusion Criteria At DC or during hospital stay patient has or had the following: ACS DIAGNOSIS No Discharge Core Measures Meds if any: Prescribed or Continued at Discharge Meds if any: NOT Prescribed or Continued at Discharge Congestive Heart Failure Inclusion Criteria At DC or during hospital stay patient has or had the following: CHF DIAGNOSIS No Discharge Core Measures Meds if any: Prescribed or Continued at Discharge Meds if any: NOT Prescribed or Continued at Discharge Cerebrovascular accident Inclusion Criteria At DC or during hospital stay patient has or had the following: CVA/TIA Diagnosis No Discharge Core Measures Meds if any: Prescribed or Continued at Discharge Meds if any: NOT Prescribed or Continued at Discharge Venous thromboembolism Inclusion Criteria VTE Diagnosis No VTE Type NONE VTE Confirmed by (Test) NONE Discharge Core Measures - Per Current guidelines, there needs to be overlap - treatment for the first 5 days of Warfarin therapy. - If discharged on Warfarin prior to 5 days of - overlap therapy, the patient will need to be - assessed for post discharge needs including - *Post discharge parental anticoagulation - *Warfarin and/or parental anticoagulation education - *Follow up date to check INR post discharge At least 5 days overlap therapy as Inpatient No Meds if any: Prescribed or Continued at Discharge Note: Overlap Therapy is Warfarin and Anticoagulant Meds if any: NOT Prescribed or Continued at Discharge
--- NOTE | 2017-10-25 12:26 | Discharge Summary ---
Visit Information Visit Dates Admission Date: 10/17/17 Discharge Date: 10/26/2017 Hospital Course Course Attending Physician: Amos Mosley MD Primary Care Physician: Amos Mosley MD. Hospital Course: 62-year-old man with multiple medical problems significant for end-stage oxygen dependent chronic respiratory failure / emphysema, cocaine abuse, and medication noncompliance seen for evaluation of shortness of breath and hypoxia. On presentation patient was somnolent and unable to offer subjective complaints or review of systems. Vital signs were significant for SPO2 ~84% prior to being placed on BiPAP at 100% FiO2. Physical exam demonstrated a middle-aged ill- appearing man in moderate respiratory distress with diffuse inspiratory wheezing and diminished bibasilar airflow. Labs including CBC, serum chemistry, LFT, troponin I, EtOH, and lipase are otherwise normal or negative. ABG demonstrates acidosis with hypoxia and hypercarbia. EKG demonstrates sinus tachycardia. 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 (FEV1 < 0.5L ) -Community acquired pneumonia LLL w/ bronchiectasis s/p ABx -Chronic respiratory failure/emphysema, on home oxygen -Pulmonary nodule -Bez-afhgskl-qeqoetsxm diabetes mellitus -Hyperlipidemia -History of cocaine abuse -extensive tobacco history, previously smoking 3-4 pack per day Patient was admitted to ICU to acute management including TRC/Neb/BiPAP/High flow Oxygen/NPO due to hypoxic/hypercabic resp failture on ABG, with solumedrol 40mg q6 along w/ supportive treatment including low dose morphine and ativan/ lexapro, and started on antibiotics including ceftriaxone/azithromycin for empiric coverage of CAP. Over the ICU course, patient was stablized on resp status and gradually tapered down on steroid. Due ot patient's FEV1 was <0.5L, family discussion was held regarding plan of care and patient wishes to be DNI. Over the ICU course, antibiotics was switched to PO and Nocturnal BiPAP was continued as tolerated. Patient was downgraded to [facility] floor as stablized overall on resp status. Due to patient's end-stage COPD, [facility] was contacted and planned for STR discharge for pulmonary rehab and further outpatient care, along with prednisone taper. Patient was kept on Novolog SS and levemir during hospital stay. Patient was advised to resume oral antihyperglycemics and continued inpatient Novolog SS ( latest HbA1c 7.8). All other home meds for PMH was continued. DVT PPX Lovenox + ALPS Diabetic Diet DNI Allergies: Coded Allergies: No Known Allergies (06/17/15) Pertinent Lab Results: SERVICE DATE: 10/17/17 EXAM TYPE: RAD - XRY-PORTABLE CHEST XRAY IMPRESSION: No acute change. No evidence of acute infiltrates. Disposition Summary Disposition Principal Diagnosis: as in hospital course Additional Diagnosis: as above Discharge Disposition: SNF Discharge Instructions General Discharge Information Code Status: Do Not Intubate Patient's Diet: Diabetic Diet Patient's Activity: as tolerated Follow-Up Instructions/Appts: - Please continue using BiPAP at night if tolerated. - Please follow up with your primary care physician Dr. Mosley within 1-2 weeks of discharge. Inform your primary care physician of this admission to [facility]. - Continue your current medications per discharge instructions. - Please watch for these problems: Fever, Chills, Nausea, Vomiting, Shortness of Breath, Productive Cough, Chest Pain/Discomfort, Abdominal Pain, Active Bleeding or Bloody urine/stool. Medications at Discharge Discharge Medications: Continue taking these medications: Fluticasone/Salmeterol (Advair 250-50 Diskus) 250 MCG-50 MCG/DOSE BLST.W.DEV 1 Puff Inhale through mouth TWICE DAILY Comments: not given in hospital atrovent given in replace Last Taken:10/26/17 Time:0900am Tiotropium [place] (Spiriva) 18 MCG CAP.W.DEV 1 Capsule Inhale through mouth DAILY Comments: not given in hospital Albuterol Sulfate (Proventil Hfa) 90 MCG HFA.AER.AD 2 Puff Inhale through mouth As Directed as needed for EMPHYSEMA/COPD Comments: Given via nebulizer Last Taken:10/26/17 Time:0900am Metformin HCl (Glucophage) 850 MG TABLET 1 Tablet ORAL TWICE DAILY Comments: not given in hospital Losartan Potassium (Cozaar) 25 MG TABLET 1 Tablet ORAL DAILY Comments: Last Taken:10/26/17 Time:0800am Empagliflozin (Jardiance) 10 MG TABLET 1 Tablet ORAL DAILY Comments: not given in hospital Sitagliptin Phosphate (Januvia) 100 MG TABLET 1 Tablet ORAL DAILY Comments: not given in hospital Duloxetine HCl (Duloxetine HCl) 30 MG CAPSULE.DR 1 Capsule ORAL DAILY Comments: Last Taken:10/26/17 Time:0800am Roflumilast (Daliresp) 500 MCG TABLET 1 Tablet ORAL DAILY Comments: not given in hospital Azithromycin (Zithromax) 250 MG TABLET 1 Tablet ORAL QOD Comments: not given in hospital Lovastatin (Lovastatin) 20 MG TABLET 1 Tablet ORAL DAILY Comments: not given in hospital lipitor given in replace Last Taken:10/25/17 Time:400pm Calcium (Elemental-Fr Calcarb) (Calcium) 600 MG CALCIUM (1,500 MG) TABLET 2 Tablet ORAL DAILY Comments: not given in hospital Cholecalciferol (Vitamin D3) (Vitamin D) 2,000 UNIT CAPSULE 1 Capsule ORAL DAILY Comments: Last Taken:10/26/17 Time:0800am Start taking the following new medications: Insulin Aspart (Novolog) 100 UNIT/ML VIAL 0 ORAL 3 TIMES DAILY BEFORE MEALS Qty = 10 No Refills Instructions: BEFORE MEALS Blood Insulin Sugar Units <80 0 81-150 0 151-200 2 201-250 4 251-300 6 301-350 8 351-400 10 >400 12 Call Doctor Methylprednisolone Sod Succ/Pf (Solu-Medrol 40 MG Vial) 40 MG/ML VIAL 60 Milligram IV DAILY Qty = 3 No Refills Comments: Last Taken:10/26/17 Time:0800am Nicotine (Nicotine Patch) 14 MG/24 HOUR PATCH.TD24 1 Patch On the skin DAILY Qty = 28 No Refills Comments: Last Taken:10/25/17 Time:400pm 21mg administered Copies To: Amos Mosley MD Attending MD Review Statement Documenting Attending: Amos Mosley MD Other Findings: Seen and examined stable plan as above to ban
--- NOTE | 2017-10-25 13:07 | RADIOLOGY REPORT ---
EXAMINATION: XR PORTABLE CHEST CLINICAL INFORMATION: Exacerbation of chronic obstructive pulmonary disease on steroids. COMPARISON: CXR from 10/14/2017 and 10/17/2017. Chest CT from 10/14/2017. TECHNIQUE: Portable frontal view of the chest was obtained. FINDINGS: Lungs are slightly hyperexpanded. Interval improvement in bronchial wall thickening of the mid and lower lung zones compared to 10/14/2017. Also, previously noted micronodular opacities (from tree-in-bud nodules as seen on the recent chest CT) have become less conspicuous and/or has resolved, although there appears to be some residual tree-in-bud opacity in the lateral right base. No new pulmonary disease. No consolidation, pleural effusion or pneumothorax. Cardiac silhouette is normal in size. The hilar contours are normal. The visualized bones are intact. IMPRESSION: Overall, there has been improvement of infectious/inflammatory disease of airways compared to 10/14/2017. Stable appearance of the chest compared to 10/17/2017. No acute consolidation.
[2017-10-25 13:41] LABS: ABSOLUTE EOSINOPHIL COUNT 0 /CUMM (0.0-0.7); EOSINOPHIL % 0 % (0-5); HEMATOCRIT 47.5 % (42-52)
[2017-10-25] MEDS ORDERED: SOLU-MEDRO40 MG/1 ML IV (13:43)
[2017-10-25 13:45] LABS: ABSOLUTE BASOPHIL COUNT 0.2 /CUMM (0.0-0.2); ABSOLUTE GRANULOCYTE CT 12.1 /CUMM (1.4-6.5); ABSOLUTE LYMPH COUNT 0.6 /CUMM (1.2-3.4); ABSOLUTE MONOCYTE COUNT 0 /CUMM (0.10-0.60); BASOPHIL % 1.5 % (0.0-2.0); MEAN CORPUSCULAR HGB 31.6 PG (27.0-31.0); MEAN CORPUSCULAR HGB CONC 32.8 G/DL (33.0-37.0); MEAN CORPUSCULAR VOLUME 96.1 FL (80.0-94.0); MEAN PLATELET VOLUME 8.6 FL (7.4-10.4); PLATELET COUNT 249 /CUMM (130-400); RBC DISTRIBUTION WIDTH 11.9 % (11.5-14.5); RED BLOOD CELL CT 4.95 /CUMM (4.70-6.10)
[2017-10-25 13:46] LABS: WHITE BLOOD CELL COUNT 12.9 /CUMM (4.8-10.8)
[2017-10-25] MEDS ORDERED: NICOTINE PATCH1 EAC2 TOP (14:00)
[2017-10-25 14:10] LABS: GRANULOCYTE % 93.8 % (42.2-75.2)
[2017-10-25 14:16] VITALS: BP 120/70
[2017-10-25 21:51] VITALS: BP 130/82
[2017-10-26 06:20] VITALS: BP 128/70
[2017-10-26 10:58] VITALS: BP 118/62
--- NOTE | 2017-10-26 20:28 | PN- Housestaff ---
Subjective Follow-up For: Evaluation for shortness of breath and hpoxia Complaints: Shortness of breath Subjective: Patient was seen and examined in bed. He was comfortable, no acute distress, willing to discharge, oriented to time place person. Patient denies confusion, headache, chest pain, cough, palpitation, abdominal pain, burning micturition, fever and chills. Review of Systems Constitutional: Denies: see HPI. Objective Last 24 Hrs of Vital Signs/I&O Vital Signs Date Time Temp Pulse Resp B/P B/P Pulse O2 O2 Flow FiO2 Mean Ox Delivery Rate 10/26 1058 98.5 93 20 118/62 10/26 0858 92 Nasal 3.5L Cannula 10/26 0806 93 118/62 10/26 0800 95 Nasal 3.5L Cannula 10/26 0620 98.5 92 20 128/70 93 Nasal Cannula 10/26 0044 85 96 10/26 0000 94 Nasal 3.5L Cannula 10/25 2255 98 94 10/25 2232 76 10/25 2151 98.4 110 20 130/82 93 Intake & Output 10/26 1600 10/26 0800 10/26 0000 Intake Total 130 480 Output Total 400 750 Balance -270 -270 Intake, IV 10 Intake, Oral 120 480 Output, Urine 400 750 Physical Exam General Appearance: Oriented X3, Cooperative Current Medications: Current Medications Sig/Deidra Start time Last Medication Dose Route Stop Time Status Admin Acetaminophen 1,000 MG Q6P PRN 10/18 0030 DCD IV Albuterol Sulfate 3 ML EVERY 4 HRS/AWAKE 10/23 1200 DCD 10/26 INH 0855 Atorvastatin Calcium 5 MG 1700 10/18 1700 DCD 10/25 PO 1609 Cholecalciferol 1,000 IU DAILY 10/18 09 DCD 10/26 PO 0805 Duloxetine HCl 30 MG DAILY 10/18 09 DCD 10/26 PO 0806 Enoxaparin Sodium 40 MG DAILY 10/18 09 DCD 10/26 SC 0805 Escitalopram Oxalate 10 MG DAILY 10/19 1031 DCD 10/26 PO 0806 Guaifenesin 600 MG Q12 10/21 0900 DCD 10/26 PO 0805 Insulin Aspart 0 TIDAC 10/22 08 DCD 10/26 SC 0807 Insulin Detemir 8 UNITS BID 10/23 2100 DCD 10/26 SC 0806 Ipratropium [place] 2.5 ML EVERY 4 HRS/AWAKE 10/23 1200 DCD 10/26 INH 0855 Lorazepam 0.25 MG Q12P PRN 10/22 1145 DCD 10/26 IV 1159 Losartan Potassium 25 MG DAILY 10/18 0900 DCD 10/26 PO 0806 Methylprednisolone 60 MG DAILY 10/26 0900 DCD 10/26 IV 0806 Morphine Sulfate 2 MG Q4P PRN 10/20 1100 DCD 10/21 IV 0547 Nicotine 2 MG 1045 10/26 1045 DC 10/26 PO 10/26 1046 1106 Nicotine 14 MG DAILY 10/26 1017 DCD 10/26 TOP 1105 Assessment/Plan Assessment: 62-year-old man with multiple medical problems significant for end-stage oxygen dependent chronic respiratory failure / emphysema, cocaine abuse, and medication noncompliance seen for evaluation of shortness of breath and hypoxia. Problem List -Acute on chronic hypoxic / hypercarbic respiratory failure, resolved -Community acquired pneumonia -Chronic respiratory failure/emphysema, on home oxygen -Pulmonary nodule -NIDDM -Hyperlipidemia -History of cocaine abuse -extensive tobacco history, previously smoking 3-4 pack per day Plan: -Acute management for acute COPD exacerbation completed. - According to supplemental nurse the patient is ready for discharge -DVT prophylaxis -Diabetic diet -DNI Problem List: 1. COPD (chronic obstructive pulmonary disease) Pain Ratin Pain Location: no pain Pain Goal: no pain Pain Plan: no pain Tomorrow's Labs & Rationales: no lab Discharge Plan Stable for Discharge? Yes
== END 2017-10-26 12:03 | DRG 193 ==
LOC: ERH 22:02 → ERHI 23:20 → CRI 23:20 → ENRESERV 10-18 00:15 → CRI 10-18 01:21 → ENTRNSPT 10-23 12:46 → EDTRNSPT 10-23 12:54 → EDTRNSPTSTS 10-23 12:54 → 2NA 10-23 13:06 → CMPTRNSPT 10-23 13:12 → 2NA 10-23 19:35 → ENPENDDIS 10-26 11:13 → 2NA 10-26 12:03
PROVIDERS: Internal Medicine Interventional Cardiology; Pediatrics; Student in an Organized Health Care Education/Training Program
PROC: 5A09457 Assistance with Respiratory Ventilation, 24-96 Consecutive Hours, Continuous Positive Airway Pressure (ICD-10-PCS; principal; 2017-10-18)
DX: J18.1 Lobar pneumonia, unspecified organism (principal); J96.22 Acute and chronic respiratory failure with hypercapnia; J96.21 Acute and chronic respiratory failure with hypoxia; J44.0 Chronic obstructive pulmonary disease with (acute) lower respiratory infection; R91.1 Solitary pulmonary nodule; E78.5 Hyperlipidemia, unspecified; Z99.81 Dependence on supplemental oxygen; E11.9 Type 2 diabetes mellitus without complications; R00.0 Tachycardia, unspecified; F32.9 Major depressive disorder, single episode, unspecified; Z79.84 Long term (current) use of oral hypoglycemic drugs; Z79.51 Long term (current) use of inhaled steroids; F17.210 Nicotine dependence, cigarettes, uncomplicated; Z66 Do not resuscitate; F14.90 Cocaine use, unspecified, uncomplicated
CPT/HCPCS: 2NAP; CCU; ERO; 36415; 36592; 71045; 80307; 81001; 82436; 87040; 87070; 87449; 87450; 93005; 93010; 94644; 97116-GO; 97161-GP; 99291; G0480; J0456; J0696; J1650; J1815; J2060; J2270; J2405; J2920; J2930; J7040